=== PATIENT | male | born 1945 | race Caucasian/White ===

== ENCOUNTER 2018-06-18 12:21 | Emergency (ER) | payer OTHER ==
[2018-06-18] MEDS ORDERED: BUPIVACAINE 0.5% PF 10 ML VIAL ONE (12:55)
[2018-06-18] MEDS ORDERED: TETANUS & DIPHTHERIA TOX,ADULT 0.5 ML VIAL ONE (13:03)
--- NOTE | 2018-06-18 13:51 | EDPHYS ---
Physician Documentation [facility] Name: Marcellus Pereira Age: 72 yrs Sex: Male : 1945 Arrival Date: 06/18/2018 Time: 12:21 Bed 18 Private MD: ED Physician Travon Fisher HPI: 06/18 13:09 This 72 yrs old Male presents to ER via Ambulatory with complaints of jmm Laceration - Finger. 13:09 The patient or guardian reports injury, a laceration. Onset: The symptoms/episode jmm began/occurred acutely, 2 hour(s) ago. Modifying factors: The symptoms are alleviated by pressure to area, the symptoms are aggravated by movement. This is a 72 year old male with a history of hlp, that presents to the ED with complaints of a laceration to the left index finger. Patient states accidentally cutting his finger with a clean paring knife. Patient denies other injury. . Historical: - Allergies: 12:30 No Known Allergies; sv - PMHx: 12:30 High Cholesterol; Arthritis; sv - PSHx: 12:30 Hernia repair; sv - Immunization history:: Last tetanus immunization: < 10 years ago. - Social history:: Smoking status: Patient/guardian denies using tobacco. - Ebola Screening: : No symptoms or risks identified at this time. ROS: 13:09 Constitutional: Negative for fever, chills, and weight loss, Cardiovascular: Negative jmm for chest pain, palpitations, and edema, Respiratory: Negative for shortness of breath, cough, wheezing, and pleuritic chest pain. 13:09 MS/extremity: Positive for injury or acute deformity, laceration. 13:09 Skin: Positive for laceration(s). 13:09 All other systems are negative. Exam: 13:09 Constitutional: This is a well developed, well nourished patient who is awake, alert, jmm and in no acute distress. Head/Face: atraumatic. Eyes: EOMI, no conjunctival erythema appreciated ENT: Moist Mucus Membranes Neck: Trachea midline, Supple Chest/axilla: Normal chest wall appearance and motion. Cardiovascular: Regular rate and rhythm. No edema appreciated Respiratory: Normal respirations, no respiratory distress appreciated Abdomen/GI: Non distended, soft Back: Normal ROM 13:09 Musculoskeletal/extremity: FROM against resistance appreciated to the left DIP, < 2 sec dist cap refill, sensation intact, NVI. 13:09 Skin: 2 cm laceration noted to the palmar surface of the left index finger, no active bleeding is appreciated. 13:09 Neuro: Orientation: is normal, Mentation: is normal, Memory: is normal. 13:09 Psych: Behavior/mood is pleasant, cooperative. Vital Signs: 12:30 BP 129 / 67; Pulse 54; Resp 16; Temp 97.8(TE); Pulse Ox 98% ; Weight 86.64 kg; Height 6 sv ft. 2 in. (187.96 cm); Pain 0/10; 12:30 Body Mass Index 24.52 (86.64 kg, 187.96 cm) sv Laceration: 13:49 Wound Repair of 3cm ( 1.2in ) subcutaneous laceration to palmar aspect of distal jmm phalanx of left index finger and palmar aspect of middle phalanx of left index finger. Distal neuro/vascular/tendon intact. Anesthesia: Digital block administered with 3 mls of 0.5% marcaine. Wound prep: Moderate cleansing with betadine by me. Skin closed with 7 5-0 Prolene using simple sutures and sterile technique. Patient tolerated well. MDM: 12:34 Patient medically screened. [facility] 13:49 Data reviewed: vital signs, nurses notes. Counseling: I had a detailed discussion with kaleb the patient and/or guardian regarding: the historical points, exam findings, and any diagnostic results supporting the discharge/admit diagnosis, the need for outpatient follow up, to return to the emergency department if symptoms worsen or persist or if there are any questions or concerns that arise at home. ED course: Patient given wound infection return precautions. Patient understood and agrees with the plan of care. . Administered Medications: 12:53 Drug: Tetanus-Diphtheria Toxoid Adult 0.5 ml {Environmental Engineering Assistant: Mydish. Exp: em 04/01/2020. Lot #: [id number]. } Route: IM; Site: left deltoid; 14:08 Follow up: Response: No adverse reaction em 12:58 Drug: Marcaine (0.5 %) 5 ml {Note: administered by PA. Zenon} Volume: 10 ml; Route: em Infiltration; 14:08 Follow up: Response: No adverse reaction; Pain is decreased em Disposition: 15:12 Co-signature as Attending Physician, Travon Fsiher MD. rn Disposition: 06/18/18 13:50 Discharged to Home. Impression: Finger Laceration. - Condition is Stable. - Discharge Instructions: Laceration Care, Adult. - Medication Reconciliation Form, Thank You Letter, Antibiotic Education, Prescription Opioid Use form. - Follow up: Private Physician; When: 1 week; Reason: Recheck today's complaints, Continuance of care, Staple/Suture removal, Re-evaluation by your physician. Signatures: Shanti Rose, RN RN Zenon Underwood PA PA Emil Donis, PAPER TUBE CUTTER PAPER TUBE CUTTER Travon Trammell MD MD salesperson furniture: (The following items were deleted from the chart) 14:08 13:50 06/18/2018 13:50 Discharged to Home. Impression: Finger Laceration. Condition is em Stable. Forms are Medication Reconciliation Form, Thank You Letter, Antibiotic Education, Prescription Opioid Use. Follow up: Private Physician; When: 1 week; Reason: Recheck today's complaints, Continuance of care, Staple/Suture removal, Re-evaluation by your physician. kaleb
--- NOTE | 2018-06-18 13:51 | ER ---
Nurse's Notes [facility] Name: Marcellus Pereira Age: 72 yrs Sex: Male : 1945 Arrival Date: 06/18/2018 Time: 12:21 Bed 18 Private MD: Diagnosis: Finger Laceration Presentation: 06/18 12:28 Presenting complaint: Patient states: left 2nd digit laceration happened about 2 hrs sv ago with a pairing knife. Transition of care: patient was not received from another setting of care. Complicating Factors: There are no complicating factors for this patient. Onset of symptoms was June 18, 2018. Initial Sepsis Screen: Does the patient meet any 2 criteria? No. Patient's initial sepsis screen is negative. Does the patient have a suspected source of infection? No. Patient's initial sepsis screen is negative. Care prior to arrival: None. 12:28 Method Of Arrival: Ambulatory sv 12:28 Acuity: NANCY 3 sv Historical: - Allergies: 12:30 No Known Allergies; sv - PMHx: 12:30 High Cholesterol; Arthritis; sv - PSHx: 12:30 Hernia repair; sv - Immunization history:: Last tetanus immunization: < 10 years ago. - Social history:: Smoking status: Patient/guardian denies using tobacco. - Ebola Screening: : No symptoms or risks identified at this time. Screenin:00 Abuse screen: Denies threats or abuse. em 13:00 Nutritional screening: No deficits noted. Tuberculosis screening: No symptoms or risk em factors identified. Fall Risk None identified. Assessment: 13:00 General: Appears in no apparent distress. comfortable, Behavior is calm, cooperative. em Pain: Denies pain. Neuro: Level of Consciousness is awake, alert, obeys commands, Oriented to person, place, time, situation. Cardiovascular: Capillary refill < 3 seconds Patient's skin is warm and dry. Respiratory: Airway is patent Respiratory effort is even, unlabored, Respiratory pattern is regular, symmetrical. Derm: Skin is intact, is healthy with good turgor, Skin is pink, warm \T\ dry. Musculoskeletal: Capillary refill < 3 seconds, Range of motion: intact in all extremities. Injury Description: Laceration sustained to palmar aspect of distal phalanx of left index finger is clean, 2.6 to 7.5 cm long, not bleeding, was sustained 1-2 hours ago. is bleeding moderately a dressing was applied. 13:10 Reassessment: I agree with previous assessment. hb Vital Signs: 12:30 BP 129 / 67; Pulse 54; Resp 16; Temp 97.8(TE); Pulse Ox 98% ; Weight 86.64 kg; Height 6 sv ft. 2 in. (187.96 cm); Pain 0/10; 12:30 Body Mass Index 24.52 (86.64 kg, 187.96 cm) sv ED Course: 12:21 Patient arrived in ED. as 12:29 Triage completed. sv 12:30 Arm band placed on. sv 12:34 Emil Barrios LVN is Primary Nurse. em 12:34 Zenon Roberts PA is PHCP. [facility] 12:34 Travon Fisher MD is Attending Physician. [facility] 13:00 Patient has correct armband on for positive identification. Bed in low position. Call em light in reach. Adult w/ patient. 13:40 Assist provider with laceration repair on palmar aspect of distal phalanx of left index em finger that was between 2.6 to 7.5 cm using sutures. Set up tray. Performed by Zenon BEAR Dressed with 4X4s, Neosporin, Patient tolerated well. 14:06 Patient did not have IV access during this emergency room visit. em Administered Medications: 12:53 Drug: Tetanus-Diphtheria Toxoid Adult 0.5 ml {Clerk Telegraph Service: [employer]. Exp: em 04/01/2020. Lot #: [id number]. } Route: IM; Site: left deltoid; 14:08 Follow up: Response: No adverse reaction em 12:58 Drug: Marcaine (0.5 %) 5 ml {Note: administered by MARIANELA Yarbrough.} Volume: 10 ml; Route: em Infiltration; 14:08 Follow up: Response: No adverse reaction; Pain is decreased em Outcome: 13:50 Discharge ordered by . [facility] 14:06 Discharged to home ambulatory, with family. em 14:06 Condition: good 14:06 Discharge instructions given to patient, family, Instructed on discharge instructions, follow up and referral plans. medication usage, wound care, Demonstrated understanding of instructions, follow-up care. 14:08 Patient left the ED. em Signatures: Shanti Rose RN RN Zenon Underwood PA PA jmm Munoz, Edgar, JD EDWARDS DEVELOPER JD EDWARDS DEVELOPER Chelsey Almeida Heather, RN RN Corrections: (The following items were deleted from the chart) 14:07 14:06 No provider procedures requiring assistance completed. samson em
== END 2018-06-18 14:08 | disposition home or self-care (01) ==
LOC: ER 12:21
PROC: 0JQK0ZZ Repair Left Hand Subcutaneous Tissue and Fascia, Open Approach (ICD-10-PCS; principal; 2018-06-18)
DX: S61.211A Laceration without foreign body of left index finger without damage to nail, initial encounter (principal); W26.0XXA Contact with knife, initial encounter; E78.00 Pure hypercholesterolemia, unspecified
CPT/HCPCS: 90471; 90714; 99283

== ENCOUNTER 2018-06-19 07:16 | Emergency (ER) | payer OTHER ==
[2018-06-19] MEDS ORDERED: DERMABOND SKIN ADHESIVE TOP ONE (07:56)
--- NOTE | 2018-06-19 08:23 | ER ---
Nurse's Notes [facility] Name: Marcellus Pereira Age: 72 yrs Sex: Male : 1945 Arrival Date: 06/19/2018 Time: 07:18 Bed 15 Private MD: Diagnosis: Wound dehiscense of left index finger Presentation: 06/19 07:31 Presenting complaint: Patient states: "I came in and got sutures on my finger and I aa5 don't know if I grabbed something really hard or what but I have another cut on my finger now and I need more stitches". Transition of care: patient was not received from another setting of care. Onset of symptoms was June 2018. Risk Assessment: Do you want to hurt yourself or someone else? Patient reports no desire to harm self or others. Initial Sepsis Screen: Does the patient meet any 2 criteria? No. Patient's initial sepsis screen is negative. Does the patient have a suspected source of infection? No. Patient's initial sepsis screen is negative. Care prior to arrival: None. 07:31 Method Of Arrival: Ambulatory aa5 07:31 Acuity: NANCY 4 aa5 Historical: - Allergies: 07:32 No Known Allergies; aa5 - PMHx: 07:32 Arthritis; High Cholesterol; aa5 - PSHx: 07:32 Hernia repair; aa5 - Immunization history:: Last tetanus immunization: up to date Flu vaccine status is unknown. - Social history:: Smoking status: Patient/guardian denies using tobacco. - Ebola Screening: : No symptoms or risks identified at this time. Screenin:35 Abuse screen: Denies threats or abuse. Nutritional screening: No deficits noted. rb1 Tuberculosis screening: No symptoms or risk factors identified. Fall Risk None identified. Assessment: 07:35 General: Appears in no apparent distress. comfortable, Behavior is calm, cooperative. rb1 Neuro: Level of Consciousness is awake, alert, obeys commands, Oriented to person, place, time, situation. Cardiovascular: Capillary refill < 3 seconds is brisk in bilateral fingers. Respiratory: Airway is patent Respiratory effort is even, unlabored, Respiratory pattern is regular, symmetrical. GI: No signs and/or symptoms were reported involving the gastrointestinal system. : No signs and/or symptoms were reported regarding the genitourinary system. Derm: Skin is pink, warm \\T\\ dry. Wound noted palmar aspect of distal phalanx of left index finger Wound is small amount of bleeding noted. Musculoskeletal: Range of motion: intact in all extremities. 07:35 Pain: Complains of pain in palmar aspect of distal phalanx of left index finger Pain rb1 currently is 3 out of 10 on a pain scale. 08:30 Reassessment: Patient appears in no apparent distress at this time. Patient and/or rb1 family updated on plan of care and expected duration. Pain level reassessed. Patient is alert, oriented x 3, equal unlabored respirations, skin warm/dry/pink. No bleeding noted at this time. Vital Signs: 07:32 BP 129 / 68; Pulse 66; Resp 16 S; Temp 98.3(TE); Pulse Ox 98% on R/A; aa5 08:30 BP 127 / 68; Pulse 65; Resp 17; Temp 98.2(O); Pain 2/10; rb1 ED Course: 07:18 Patient arrived in ED. as 07:26 Brian Chaney MD is Attending Physician. ps1 07:31 Arm band placed on. aa5 07:32 Triage completed. aa5 07:35 Patient has correct armband on for positive identification. Bed in low position. Call rb1 light in reach. Side rails up X 1. Pulse ox on. NIBP on. 07:39 Bridgette Figueredo, RN is Primary Nurse. rb1 08:34 No provider procedures requiring assistance completed. Patient did not have IV access rb1 during this emergency room visit. Administered Medications: No medications were administered Outcome: 08:22 Discharge ordered by . ps1 08:34 Discharged to home ambulatory. rb1 08:34 Condition: stable 08:34 Discharge instructions given to patient, Instructed on discharge instructions, follow up and referral plans. Demonstrated understanding of instructions, follow-up care, Prescriptions given X none 08:35 Patient left the ED. rb1 Signatures: Chelsey Lynn Audri RN RN aa5 Bridgette Figueredo, RN RN rb1 Brian Chaney MD MD ps1
--- NOTE | 2018-06-19 08:23 | EDPHYS ---
Physician Documentation [facility] Name: Marcellus Pereira Age: 72 yrs Sex: Male : 1945 Arrival Date: 06/19/2018 Time: 07:18 Bed 15 Private MD: ED Physician Brian Chaney HPI: 06/19 08:13 This 72 yrs old Male presents to ER via Ambulatory with complaints of Finger ps1 Problem. 08:13 patient was seen and evaluated yesterday and was sutured for a paring knife injury. He ps1 has a flap at the site of injury that the suture popped and now wound dehiscence. He is experiencing venous bleeding that is controlled with pressure. Not on anti-coagulants but takes motrin. . Historical: - Allergies: 07:32 No Known Allergies; aa5 - PMHx: 07:32 Arthritis; High Cholesterol; aa5 - PSHx: 07:32 Hernia repair; aa5 - Immunization history:: Last tetanus immunization: up to date Flu vaccine status is unknown. - Social history:: Smoking status: Patient/guardian denies using tobacco. - Ebola Screening: : No symptoms or risks identified at this time. ROS: 08:13 Constitutional: Negative for fever, chills, and weight loss, Eyes: Negative for injury, ps1 pain, redness, and discharge, ENT: Negative for injury, pain, and discharge, Cardiovascular: Negative for chest pain, palpitations, and edema, Respiratory: Negative for shortness of breath, cough, wheezing, and pleuritic chest pain, Abdomen/GI: Negative for abdominal pain, nausea, vomiting, diarrhea, and constipation, Skin: Negative for injury, rash, and discoloration. 08:13 MS/extremity: Positive for laceration, v shaped previously sutured laceration to palmar aspect of left index finger. . Exam: 08:13 Constitutional: This is a well developed, well nourished patient who is awake, alert, ps1 and in no acute distress. Head/Face: Normocephalic, atraumatic. Eyes: Pupils equal round and reactive to light, extra-ocular motions intact. Lids and lashes normal. Conjunctiva and sclera are non-icteric and not injected. Chest/axilla: Normal chest wall appearance and motion. Nontender with no deformity. No lesions are appreciated. Cardiovascular: Regular rate and rhythm. No gallops, murmurs, or rubs. Normal PMI, no JVD. No pulse deficits. Respiratory: Lungs have equal breath sounds bilaterally, clear to auscultation and percussion. No rales, rhonchi or wheezes noted. No increased work of breathing, no retractions or nasal flaring. Abdomen/GI: Soft, non-tender, with normal bowel sounds. No distension or tympany. No guarding or rebound. No evidence of tenderness throughout. Skin: Warm, dry with normal turgor. Normal color with no rashes, no lesions, and no evidence of cellulitis. 08:13 Musculoskeletal/extremity: Extremities: grossly normal except: noted in the palmar aspect of distal phalanx of left index finger: good cap refill. 2 cm "V" shaped laceration with wound dehiscense and sutures not approximating the flap. Underlying venous bleeding. distal sutures intact. Flap appears white and with poor circulation. Good distal circulation to the tip of the finger that appears pink and with good cap refill. Has normal sensation. . Vital Signs: 07:32 BP 129 / 68; Pulse 66; Resp 16 S; Temp 98.3(TE); Pulse Ox 98% on R/A; aa5 08:30 BP 127 / 68; Pulse 65; Resp 17; Temp 98.2(O); Pain 2/10; rb1 Procedures: 08:23 Splinting: Splint applied to palmar aspect of distal phalanx of left index finger using ps1 finger splint, applied by nurse. Patient tolerated well. Laceration: 08:13 Wound Repair of 2cm ( 0.8in ) subcutaneous laceration to palmar aspect of distal ps1 phalanx of left index finger. Distal neuro/vascular/tendon intact. Wound prep: small amount of surgicel was placed under skin flap for 10 minutes. Hemostasis achieved. Dermabond then applied. . Skin closed with thin layer Adhesive skin closure using Dermabond. Dressed with non-adherent dressing. Patient tolerated well. MDM: 08:22 Patient medically screened. ps1 08:23 Data reviewed: vital signs, nurses notes, and as a result, I will discharge patient. ps1 Counseling: I had a detailed discussion with the patient and/or guardian regarding: the historical points, exam findings, and any diagnostic results supporting the discharge/admit diagnosis, the need for outpatient follow up, to return to the emergency department if symptoms worsen or persist or if there are any questions or concerns that arise at home. Response to treatment: the patient's symptoms have resolved after treatment. 06/19 07:50 Order name: Dermabond; Complete Time: 08:16 rb1 06/19 08:33 Order name: Splint - Finger; Complete Time: 08:33 rb1 Administered Medications: No medications were administered Disposition: 06/19/18 08:22 Discharged to Home. Impression: Wound dehiscense of left index finger. - Condition is Stable. - Discharge Instructions: Wound Dehiscence. - Medication Reconciliation Form, Thank You Letter, Antibiotic Education, Prescription Opioid Use form. - Follow up: Emergency Department; When: 10 - 14 days; Reason: Fever > 102 F, Staple/Suture removal. Follow up: Private Physician; When: 10 - 14 days; Reason: Staple/Suture removal. - Problem is an ongoing problem. - Symptoms have worsened. Signatures: Bernadette Tamayo RN RN aa5 Bridgette Figueredo RN RN rb1 Brian Chaney MD MD ps1 Corrections: (The following items were deleted from the chart) 08:35 08:22 06/19/2018 08:22 Discharged to Home. Impression: Wound dehiscense of left index rb1 finger. Condition is Stable. Forms are Medication Reconciliation Form, Thank You Letter, Antibiotic Education, Prescription Opioid Use. Follow up: Emergency Department; When: 10 - 14 days; Reason: Fever > 102 F, Staple/Suture removal. Follow up: Private Physician; When: 10 - 14 days; Reason: Staple/Suture removal. Problem is an ongoing problem. Symptoms have worsened. ps1
== END 2018-06-19 08:35 | disposition home or self-care (01) ==
LOC: ER 07:16
PROC: 0JQK0ZZ Repair Left Hand Subcutaneous Tissue and Fascia, Open Approach (ICD-10-PCS; principal; 2018-06-19)
DX: T81.30XA Disruption of wound, unspecified, initial encounter (principal); E78.00 Pure hypercholesterolemia, unspecified
CPT/HCPCS: 99283

== ENCOUNTER 2018-08-30 09:12 | Day surgery (SDC) | payer OTHER ==
--- NOTE | 2018-08-27 10:23 | RAD REPORT ---
EXAM DESCRIPTION: RAD - Chest Pa And Lat (2 Views) - 08/27/2018 10:18 am CLINICAL HISTORY: PRE-OP Chest pain. COMPARISON: No comparisons FINDINGS: The lungs are clear. The heart is mildly enlarged in size. No displaced fractures. IMPRESSION: Mild cardiomegaly.
[2018-08-27 10:37] LABS: Absolute Lymphocytes (CBC) 0.9 K/uL (0.7-4.9); Basophils % 0.3 % (0-1.3); Eosinophils % 0.9 % (0-4.4); Hematocrit 44.8 % (39.6-49.0); Lymphocytes % 12.2 % (15.3-44.8); MPV 7.3 fL (7.6-11.3); Monocytes % 5.4 % (3.3-12.3); RBC Red Blood Cell Count 4.87 M/uL (4.33-5.43)
[2018-08-27 10:45] LABS: Protime INR 0.93
[2018-08-27 10:57] LABS: Potassium 4.4 mmol/L (3.5-5.1)
[~2018-08-30 09:12] MED LIST: ATROPINE SULF 1 MG/10 ML SYR IV ONE; FENTANYL CITR 100 MCG/2 ML ONE; HEPA 1000U/500MLS 2,000 UNIT/1,000 ML BAG IV ONE; HEPARIN 5000 UNIT/ML 1 ML VIAL ONE; LIDOCAINE 1% MPF 30 ML VIAL ONE; MIDAZOLAM HCL 2 MG/2 ML INJ ONE; NA CHLORIDE 0.9% 50 ML ONE; NA CHLORIDE 0.9% 500 ML ONE; NICARDIPINE HCL 25 MG/10 ML IV ONE; NITROGLYCERIN 100 MCG/ML SYR (for cath lab use only) IV ONE; NITROGLYCERIN/D5W 25 MG/250 ML BTL IV ONE
[2018-08-30] MEDS ORDERED: PRASUGREL (EFFIENT) 10 MG TAB ONE (09:16)
[2018-08-30] MEDS ORDERED: ASPIRIN 81 MG CHEWABLE TABLET ONE (09:16)
[2018-08-30] MEDS ORDERED: TIZANIDINE 4 MG TABLET PO PRN (09:18)
--- NOTE | 2018-08-30 20:14 | OP ---
Surgeon: Enoch Villarreal MD Procedures: Left heart catheterization, coronary left ventricular angiography, percutaneous coronary intervention with a stent of the distal left anterior descending. The stenosis went from 99% to 0%. Procedure Findings: The patient's arteries other than where than 99% lesion is, are diffusely diseas ed. There is ectasia in the right coronary artery. There is 50% to 70% stenosis at numerous small s justina branches of the large vessels. No significant stenosis in large vessel was seen anywhere other t atkinson the distal LAD after a third diagonal. It was a 2.75 mm vessel, 99% stenosis, no dissection, SOLA I grade 2 to 3 distal flow. After the stent, there was no residual stenosis, 0% stenosis. Left vent ricular end-diastolic pressure was 11. All the pressures were normal. Left ventricular ejection fra ction 65%, normal. Procedure In Detail: The patient was brought to the cardiac cardiac cath lab radiology technologist in a fasting state, sedated wit h Versed and fentanyl. Prepared and draped in usual sterile fashion. Right radial approach was used . After a time-out, we anesthetized the skin over the right radial artery with 2 mL of 1% lidocaine. Artery was entered using a 21-gauge needle, cannulated with a 0.021 inch diameter guidewire and the n a 6-Mongolian Terumo radial sheath was used. As soon as the sheath was in, it was flushed and we gave the radial cocktail consisting of nicardipine, heparin, nitroglycerin. We guided the TIG catheter i nto the ascending aorta using fluoroscopy and a Hit the Markumo Glidewire with a short radius J-tip. We were able to angiogram right and left coronaries, left ventricle, all with TIG catheter. As soon as the d ecision was made to do a stent, we exchanged the TIG catheter for an XB LAD 3.5 with side holes 6-Td nch using an exchange length J-wire. We were able to engage the left main ostium nicely with this ca theter gave excellent support. We were able to cross the lesion using a Muna 0.014 inch diameter c oronary wire. After this, we placed a stent across the lesion, inflated to 12 atmospheres, withdrew it and withdrew the balloon apparatus leaving the stent in place. Of course, the angiographic result was excellent. We withdrew the wire, took pictures in orthogonal views, removed the catheter. At t he end of the procedure, the sheath was removed and the arteriotomy closed with a TR band. Before an y hardware was placed into the coronary arteries, Angiomax was given and the activated. Clotting sola e was demonstrated to be more than 400 seconds. The patient will be loaded with Effient 60 mg, aspir in. He will continue aspirin and Plavix as an outpatient. We will stop the Zocor and give him Lipit or [address] CATHY/NIMO Voice ID: [id number] Report ID: [id number]
[2018-08-30] MEDS ORDERED: ATORVASTATIN 80 MG TAB PO SCH (21:00)
[2018-08-30] MEDS ORDERED: TRAZODONE 150 MG TAB PO SCH (21:00)
[2018-08-30] MEDS ORDERED: TAMSULOSIN 0.4 MG SR CAP PO SCH (21:00)
[2018-08-31 04:27] LABS: Hematocrit 42.5 % (39.6-49.0); MPV 7.3 fL (7.6-11.3); RBC Red Blood Cell Count 4.64 M/uL (4.33-5.43)
[2018-08-31] MEDS ORDERED: METOPROLOL XL 25 MG TAB PO SCH (06:00)
[2018-08-31] MEDS ORDERED: CLOPIDOGREL 75 MG TABLET PO SCH (09:00)
[2018-08-31] MEDS ORDERED: predniSONE 10 MG TAB PO SCH (09:00)
[2018-08-31] MEDS ORDERED: ASPIRIN EC 81 MG TAB PO SCH (09:00)
== END 2018-08-31 09:44 | disposition home or self-care (01) ==
LOC: CCL 09:12 → 4TH 09:16 → CCL 08-31 09:44
PROVIDERS: ATTEND Internal Medicine
DX: I25.118 Atherosclerotic heart disease of native coronary artery with other forms of angina pectoris (principal); G47.33 Obstructive sleep apnea (adult) (pediatric); E78.5 Hyperlipidemia, unspecified; I10 Essential (primary) hypertension; K21.9 Gastro-esophageal reflux disease without esophagitis; M19.90 Unspecified osteoarthritis, unspecified site; Z79.52 Long term (current) use of systemic steroids; Z79.899 Other long term (current) drug therapy; Z85.46 Personal history of malignant neoplasm of prostate
CPT/HCPCS: 85025; 80048 ×2; 36415 ×2; 85610; 85347; 85730; 85027; 71046; 93458; C1893; C1725; C1877; C9600; J1644; J2250 ×2; J3010; J0583; J7512

== ENCOUNTER 2019-08-25 09:30 | Day surgery (SDC) | payer OTHER ==
--- NOTE | 2019-08-24 14:49 | RAD REPORT ---
EXAM DESCRIPTION: RAD - Chest Pa And Lat (2 Views) - 08/24/2019 2:31 pm CLINICAL HISTORY: PRE OP FOR FIELD ADJUSTER, patient pending cardiac catheterization COMPARISON: Two view chest August 2018 TECHNIQUE: Frontal and lateral views of the chest were obtained. FINDINGS: The lungs are clear. Interstitial pattern matches comparison. Heart size is normal and ce ntral vasculature is within normal limits. No pleural effusion or pneumothorax seen. No acute bony finding noted. No aortic abnormality. No significant change from comparison. IMPRESSION: No acute cardiopulmonary process.
[~2019-08-25 09:30] MED LIST changes: -ATROPINE SULF 1 MG/10 ML SYR IV ONE; -FENTANYL CITR 100 MCG/2 ML ONE; -HEPA 1000U/500MLS 2,000 UNIT/1,000 ML BAG IV ONE; -HEPARIN 5000 UNIT/ML 1 ML VIAL ONE; -LIDOCAINE 1% MPF 30 ML VIAL ONE; -MIDAZOLAM HCL 2 MG/2 ML INJ ONE; -NA CHLORIDE 0.9% 50 ML ONE; -NICARDIPINE HCL 25 MG/10 ML IV ONE; -NITROGLYCERIN 100 MCG/ML SYR (for cath lab use only) IV ONE; -NITROGLYCERIN/D5W 25 MG/250 ML BTL IV ONE
[2019-08-25] MEDS ORDERED: HEPA 1000U/500MLS 2,000 UNIT/1,000 ML BAG IV ONE (10:32)
[2019-08-25] MEDS ORDERED: HEPARIN 5000 UNIT/ML 1 ML VIAL ONE ×2 (10:33→10:35)
[2019-08-25] MEDS ORDERED: MIDAZOLAM HCL 2 MG/2 ML INJ ONE ×2 (10:33→12:12)
[2019-08-25] MEDS ORDERED: FENTANYL CITR 100 MCG/2 ML ONE (10:34)
[2019-08-25] MEDS ORDERED: NICARDIPINE HCL 25 MG/10 ML IV ONE (10:34)
[2019-08-25] MEDS ORDERED: ATROPINE SULF 1 MG/10 ML SYR IV ONE (10:34)
[2019-08-25] MEDS ORDERED: HEPARIN 10,000 UNIT/10 ML VIAL IV ONE (11:50)
[2019-08-25 14:03] VITALS: TEMP 97.2; O2SAT 98
[2019-08-25 15:28] VITALS: BP 150/60
--- NOTE | 2019-08-27 23:56 | OP ---
Date of Procedure: 08/25/2019 Surgeon: ENA PALMER Procedure Performed: Selective coronary angiogram. Indications: Unstable angina. Access: Right radial artery 6-Danish closed with TR band. Complications: None. Total Sedation Time: 25 minutes. Description Of Procedure: After the risks, benefits, and alternatives were explained to the patient, he agreed to procedure and signed informed consent. The patient was brought into the cardiac cathet erization laboratory, prepped and draped in usual sterile fashion. I then used fentanyl and Versed i n incremental doses to achieve adequate moderate sedation. We access right radial artery using pedia tric micropuncture kit and a 6-Danish slender sheath was inserted over the wire and then we took a 5- Danish [place] catheter in the aortic root over the J-wire, engaged the left main coronary artery, then the right coronary artery and obtained standard views and then removed all wires and catheters out f rom the body and we closed the right radial artery access with TR band. Findings: 1.Left main is normal. 2.Patent LAD stent with mid LAD 50%-60% stenosis, unchanged from last cath. 3.Ostial D2 and ostial D3 80%-90% stenosis, very small vessels, less than 2 mm in size. 4.Left circumflex ostial 20% and proximal OM1 is [place] COOPER with good collaterals from the left side, there is a 90% proximal OM2 stenosis also a small vessel. 5.RCA large dominant with diffuse 20%-30% disease. Impression: 1.Coronary artery disease as outlined above with unstable anginal symptoms. Recommendations: 1.IFR/FFR of LAD. If that is positive, then PCI to the LAD. If this is negative, then we will plan for balloon angioplasty of the D2, D3 and OM1. Plan to schedule the IFR/FFR study in [place] and di tomas with the patient and his and they agree with the plan. 2.Aggressive cardiac risk factor and medical management of coronary artery disease. SR/MODL Voice ID: [id number] Report ID: [id number]
== END 2019-08-25 14:20 | disposition home or self-care (01) ==
LOC: CCL 09:30
DX: I25.110 Atherosclerotic heart disease of native coronary artery with unstable angina pectoris (principal); I35.9 Nonrheumatic aortic valve disorder, unspecified; I10 Essential (primary) hypertension; E78.2 Mixed hyperlipidemia; K21.9 Gastro-esophageal reflux disease without esophagitis; Z95.5 Presence of coronary angioplasty implant and graft; Z79.02 Long term (current) use of antithrombotics/antiplatelets; Z79.82 Long term (current) use of aspirin; Z20.828 Contact with and (suspected) exposure to other viral communicable diseases
CPT/HCPCS: 71046; 93454; U0002; C1893; J1644 ×2; J2250 ×2; J3010; J7040

== ENCOUNTER 2020-09-24 11:00 | Day surgery (SDC) | payer OTHER ==
--- NOTE | 2020-09-21 12:40 | RAD REPORT ---
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 COMPARISON: Chest Pa And Lat (2 Views) dated 08/24/2019; Chest Pa And Lat (2 Views) dated 08/27/2018 FINDINGS: The lungs are clear. The heart is upper limit of normal in size. No displaced fractures. IMPRESSION: No acute or concerning finding suspected.
[2020-09-21 13:07] LABS: Potassium 4.5 mmol/L (3.5-5.1)
[2020-09-21 13:10] LABS: Basophils % 0.2 % (0-1.3); Hematocrit 41.7 % (39.6-49.0); Lymphocytes % 13.8 % (15.3-44.8); MPV 6.9 fL (7.6-11.3); RBC Red Blood Cell Count 4.42 M/uL (4.33-5.43)
[2020-09-21 13:12] LABS: Protime INR 1.03
[2020-09-24] MEDS ORDERED: HEPA 1000U/500MLS 2,000 UNIT/1,000 ML BAG IV ONE (11:58)
[2020-09-24] MEDS ORDERED: MIDAZOLAM HCL 2 MG/2 ML INJ ONE (12:09)
[2020-09-24] MEDS ORDERED: ATROPINE SULF 1 MG/10 ML SYR IV ONE (12:10)
[2020-09-24] MEDS ORDERED: HEPARIN 10,000 UNIT/10 ML VIAL IV ONE (12:10)
[2020-09-24] MEDS ORDERED: HEPARIN 5000 UNIT/ML 1 ML VIAL ONE (12:10)
[2020-09-24] MEDS ORDERED: FENTANYL CITR 100 MCG/2 ML ONE (12:10)
[2020-09-24] MEDS ORDERED: VERAPAMIL HCL 10 MG/4 ML VIAL IV ONE (12:10)
[2020-09-24] MEDS ORDERED: CLOPIDOGREL 75 MG TABLET ONE (13:01)
--- NOTE | 2020-09-24 14:25 | OP ---
Date of Procedure: 09/24/2020 Surgeon: ENA PALMER Procedures Performed: 1.Selective coronary angiogram. 2.PCI of severe mid LAD stenosis using a 3.0 x 20 mm Synergy drug-eluting stent post dilated using 3 .5 x 12 mm NC balloon proximal to mid portion of the stent. Access: Right radial artery 6-Finnish closed with TR band. Indication: Unstable angina. Anesthesia: Total sedation time was 45 minutes. Complications: None. Bleeding: Less than 10 mL. Description Of Procedure: After risks, benefits, and alternatives were explained, the patient agreed to the procedure and signed informed consent. The patient was brought into cardiac catheterization laboratory, prepped and draped in usual sterile fashion. Then, we accessed right radial artery using pediatric micropuncture kit, placed 6-Finnish Slender sheath, took a 5-Finnish Hellier 4.0 catheter into the aortic root, engaged the left main and right coronary artery, took standard views and then proce eded with intervention. Intervention Details: The patient was loaded with 300 mg of Plavix. Given systemic heparin to assur e ACT level above 250 throughout the procedure and then took a 6-Finnish EBU 3.5 guide into the aortic root, engaged the left main. We took a short Run-Through wire into the LAD crossing the stenosis an d took another Run-Through wire into the diagonal 1 branch for protection. Then, the lesion was prep ped using a 3.0 x 50 mm NC balloon. Lesion expanded very well and we took a 3.0 x 20 mm Synergy drug -eluting stent across the area of stenosis. Stent was deployed successfully and I took a 3.5 x 12 mm NC balloon, post dilated mid and the proximal portion of the stent. Final images showed no complica tions with ARAVIND-3 flow. Wires were removed. Catheter was removed and the sheath was removed and chris néstor TR band with good hemostasis. Findings: 1.Left main; large, normal. 2.LAD; proximal diffuse 10% to 20% stenosis. Then mid has 80% long lesion calcified, status post garcia ccessful PCI as above. Then, there are multiple areas of 10% to 20% stenosis in the LAD throughout, but distally around the apex, there was a focal area of 60% stenosis with ARAVIND-3 flow. The diagonal 1 branch has a proximal stent that is patent. 3.Left circumflex; moderate-size vessel, normal. The OM1 is totally occluded with collaterals from the RCA and good flow all the way. OM2 is patent with a proximal stent that is patent. No iSR. 4.RCA; large, dominant, aneurysmal at multiple areas with alternating with some 10% to 20% stenosis. However, patent PDA and PLB, and PDA gives collaterals to the OM1 branch. Conclusion: 1.Severe mid LAD stenosis, status post successful PCI as above. 2.PROFESSIONAL FIGHTER of OM1 with good collaterals from RCA. Plan: 1.Aspirin, Plavix, and statin. 2.Perform peripheral angiogram in 2-3 weeks due to the contrast load. It was not done today. /NIMO Voice ID: [id number] Report ID: [id number]
[2020-09-24 14:53] VITALS: TEMP 97
[2020-09-24 16:31] VITALS: BP 135/61; O2SAT 99
--- NOTE | 2020-09-26 13:04 | EKG ---
Test Date: 2020-09-21 Test Time: 11:22:13 Business Services Officer: CHRIST MEASUREMENT RESULTS: Intervals: Rate: 40 NM: 150 QRSD: 142 QT: 502 QTc: 409 [place]: P: 12 NM: 150 QRS: -15 T: 27 INTERPRETIVE STATEMENTS: Marked sinus bradycardia with premature atrial complexes Right bundle branch block Inferior infarct, age undetermined Abnormal ECG Compared to ECG 09/21/2020 11:21:05 Atrial premature complex(es) now present Myocardial infarct finding still present Electronically Signed On 09-26-20 12:59:42 CDT by Robert Tilley
== END 2020-09-24 17:00 | disposition home or self-care (01) ==
LOC: CCL 11:00
PROVIDERS: ATTEND Internal Medicine
DX: I25.110 Atherosclerotic heart disease of native coronary artery with unstable angina pectoris (principal); I25.82 Chronic total occlusion of coronary artery; I70.213 Atherosclerosis of native arteries of extremities with intermittent claudication, bilateral legs; I10 Essential (primary) hypertension; E78.5 Hyperlipidemia, unspecified; Z95.5 Presence of coronary angioplasty implant and graft; Z20.822 Contact with and (suspected) exposure to COVID-19; Z82.49 Family history of ischemic heart disease and other diseases of the circulatory system
CPT/HCPCS: 93005 ×2; 85025; 80048; 36415; 85610; 85347; 85730; 71046; 93454; U0003; C1893; C1725; C9600; J1644 ×2; J2250; J3010

== ENCOUNTER 2021-11-10 14:14 | Observation (INO) | payer OTHER ==
[~2021-11-10 14:14] MED LIST changes: -NA CHLORIDE 0.9% 500 ML ONE; +REGADENOSON 0.4 MG/5 ML SYR IV ONE
--- OUTSIDE RECORDS SUMMARY | 2021-11-10 14:18 | XMS REPORT | Continuity of Care Document ---
:1945 Author Organization [facility] t Address [address] [place] [address] Care Team Providers Name Role Phone Syeda Andujar Attending Clinician Unavailable Brook Mae Attending Clinician Unavailable Only, Adc Test Attending Clinician Unavailable Cassius Raza MD Attending Clinician CASSIUS RAZA Attending Clinician Unavailable William Waters RN Attending Clinician Unavailable UNKNOWN Attending Clinician Unavailable Physician, No Primary or Family Admitting Clinician Unavaila ble Payers Payer Name Policy Type Policy Number Effective Date Expiration Date S ource Problems This patient has no known problems. Allergies, Adverse Reactions, Alerts Allergy Allergy Status Severity Reaction(s) Onset Inactive Treating Comm ents Source Name Type Date Date Clinician No Known DA Active U 2019- [facility] 02[facility]18 [place] [facility] 00:[facility]: [facility] No Known DA Active U 2019-02 [facility] 02-18 [place] [facility] 00:[facility]: Gracia [facility] No Known DA Active U 2020-0 [facility] 09-08 [place] 00:[place]: [address] No Known DA Active U 2020-0 [facility] 09[facility]08 [place] 00:[place]: [address] No Known DA Active U 2005-02 [facility] [place] [facility] No Known DA Active U 2005-02 [facility] Drug [place] [facility] No Known DA Active U 2006-1 [facility] Food [facility]- [place] [facility] 00:[facility]: [facility] No Known DA Active U 2005- [facility] Other [facility]- [place] [facility]: [facility] No Known DA Active U 2005- [facility] [place] [facility]: [facility] No Known DA Active U 2005- [facility]- [place] [facility] 00:[facility]: [facility] NO KNOWN Drug Active [facility] ALLERGIE Class ity [facility] Social History Social Habit Start Date Stop Date Quantity Comments Source Exposure to Not sure [facility] SARS-CoV-2 (event) [facility] Sex Assigned At [birth year] [facility] 00:00:00 00:00:00 [facility] Smoking Status Start Date Stop Date Source Unknown if ever smoked [facility] Medications This patient has no known medications. Procedures This patient has no known procedures. Encounters Start End Encounter Admission Attending Care Care Encounter Source Date/Time Date/Time Type Type Clinicians Facility Department ID 2019-12-30 Inpatient MYESHA Andujar [facility] DAYS [id number] [facility] 09:30:00 [facility] 2019-09-14 Inpatient MYESHA Mae [facility] CAT [id number] [facility] 12:18:[address] [facility] 2020-07-18 2020-07-18 Laboratory Only, Adc Test [facility] [id number] [facility] 10:25:20 10:40:20 Only Cassius Raza [id number] [facility] [id number] [facility] [id number] [place] [address] [address] 2020-07-18 2020-07-18 Outpatient R ARMANDO [facility] [id number] [facility] 10:15:00 10:15:00 CASSIUS jennings [facility] 2020-07-18 2020-07-18 Letter BLANCHE Waters [id number] [facility] 00:00:00 00:00:00 (Out) [id number] as [id number] [facility] [address] 2019-12-20 2019-12-20 Outpatient JASON AndujarCL LABO [id number] [facility] 13:17:00 13:17:00 Mufaddal 58 [facility] 2019-11-25 2019-11-25 Outpatient JASON AndujarTO RADI [id number] [facility] 09:30:00 09:30:00 Mufaddal [facility] [place] [facility] 2019-09-09 2019-09-09 Outpatient UNKNOWN [facility] LABO [id number] [facility] 15:31:00 15:31:00 13 [facility] Results Test Description Test Time Test Comments Results Result Comments Source Novel Coronavirus 2018 Inhouse 2019-12-21 02:09:00 Test Item Value Reference Range Interpretation Comme nts Novel Coronavirus 2018 Negative Negative Posit harrison results are indicative of the Inhouse (test code = presenc e imFOLP-TfV-0 RNA, clinical COVNONPUI) correlation wit h patient historyand other diagnosti c information is necessary to de terminepatient infection status. Positiv e results do not rule outbacterial in fection or co-infection with other viru ses. Negative results do not preclude SA RS-CoV-2 infection andshould not b e used as the sole basis for patient man agementdecisions. Negative result s must be combined with otherclinical o bservations, patient history, and ep idemiologicalinformation. Detection of SA RS-CoV-2 RNA may be affected bysamp le collection methods, storage conditi ons, and/or stageof infection. Josette l RNA mutations, vaccinations, a ntiviraltherapeutics, antibiotics, ch emotherapeutic orimmunosuppres rika drugs have not been evaluated for e ffectson detection. Results are for the identification of SARS-CoV-2 RNA usingthe Webflow M2000 System under th e FDA Emergency UseAuthorizatio n. The testing is performed by sera rsonneltrained in the procedures for the Webflow M2000 moleculardiagno stic SARS-CoV-2 assay in vitro. Novel Coronavirus 2018 [id number] 02:09:00 Test Item Value Reference Range Interpretation Comments Novel Coronavirus Negative Negative Positive r esults are 2019 Inhouse (test indicativ e of the presence code = COVNONPUI) ofSARS-CoV -2 RNA, clinical correlation wit h patient historyand othe r diagnostic info rmation is necessary to determinepatien t infection status. Positiv e results do not rule out bacterial infection or co -infection with other viru ses. Negative result s do not preclude SARS-C oV-2 infection andsh ould not be used as the shai e basis for patient managementdecis ions. Negative result s must be combined with otherclinical observations, p atient history, and epidemiological information . Detection of SARS-CoV-2 RNA may be affe cted bysample collec tion methods, storag e conditions, and /or stageof infection. Josette l RNA mutations, vacc inations, antiviraltherap eutics, antibiotics, chemotherapeuti c orimmunosuppres rika drugs have not been e valuated for effectson d etection. Results are for the identification of SARS-CoV-2 RNA usingthe Webflow M2000 Sy stem under the FDA Emergen cy UseAuthorizatio n. The testing is perf ormed by personneltraine d in the procedures for the Webflow M2000 molecular diagnostic SARS-CoV-2 assa y in vitro. - MRI UP JNT W/O CONT [id number] 15:59:00 Patient Name: BLANCHE REID Unit No: [id number] EXAMS: CPT CODE: [id number] MRI UP JNT W/[place] [id number] MR of the right shoulder without contrast TECHNIQUE: Paracoronal, parasagittal and axial multisequence images obtained. COMPARISON: None available. FINDINGS: Acromioclavicular joint: Moderate degenerative changes. Rotator cuff: Full- thickness tear of the near entire supraspinatus tendon measures 1.8 cm transversely and is located approximately 1 cm from the tendon insertion. Tendon retraction measures up to 1.5 cm. There is partial sparing of the posterior supraspinatus fibers. Supraspinatus and infraspinatus tendinosis is demonstrated. Mild intramuscular edema of the supraspinatus is present.Long head biceps tendon: Marked tendinosis is demonstrated without definite tear. Labrum: No definite labral tear is visualized. Cartilage/ bone: No full thickness chondral defect. No acute fracture. No suspicious osseous lesion. Other: Small glenohumeral joint effusion. IMPRESSION: 1. Full-thickness tear of the near entire supraspinatus tendon, located 1 cm proximal to the tendon insertion. 2. Marked biceps tendinosis. 3. Moderate AC joint degenerative change. at 1559 Reported and signed by: Julian Patel M.D. CC: Syeda Andujar MD Technologist: TERRIE ZAVALA RT(R) Transcribed D/ (9288) tRICKIE [facility] NAME: BLANCHE REID [id number] [facility] PHYS: JACI Ware Syeda Andujar Natacha : 1945 AGE: 74 SEX: M [place] [address] LOC: Y.MRI PHONE #: [phone] DATE: 11/25/2019 STATUS: DEP CLI FAX #: [phone] RAD #: D/C DT PAGE 1 Signed Report Patient Name: BLANCHE REID Unit No: [id number] EXAMS: CPT CODE: [id number] MRI UP JNT W/[place] [id number] <Continued> Orig Print D/T: S: 11/28/2019 (1602) [facility] NAME: BLANCHE REID [id number] [facility] PHYS: JCAI Ware Syeda Andujar : 1945 AGE: 74 SEX: M [place] [address] LOC: Y.MRI PHONE #: [phone] EXAM DATE: 11/25/2019 STATUS: DEP CLI FAX #: [phone] RAD #: D/C DT PAGE 2 Signed ReportCOAGULATION TIME [id number] 10:28:00 Test Item Value Reference Range Interpretation Comments COAGULATION TIME ACTIVATED (test 241 SECONDS 74-137 H code = ACT) COAGULATION TIME [id number] 09:52:00 Test Item Value Reference Range Interpretation Comments COAGULATION TIME ACTIVATED (test 351 SECONDS 74-137 H code = ACT) Novel Coronavirus [id number] 07:35:00 Test Item Value Reference Range Interpretation Comments Novel Coronavirus Negative Negative Positive r esults are 2019 Inhouse (test indicativ e of the presence code = [id number]) ofSARS-CoV -2 RNA, clinical correlation wit h patient historyand othe r diagnostic info rmation is necessary to determinepatien t infection status. Positiv e results do not rule out bacterial infection or co -infection with other viru ses. Negative result s do not preclude SARS-C oV-2 infection andsh ould not be used as the shai e basis for patient managementdecis ions. Negative result s must be combined with otherclinical observations, p atient history, and epidemiological information . Detection of SARS-CoV-2 RNA may be affe cted bysample collec tion methods, storag e conditions, and /or stageof infection. Josette l RNA mutations, vacc inations, antiviraltherap eutics, antibiotics, chemotherapeuti c orimmunosuppres rika drugs have not been e valuated for effectson d etection. Results are for the identification of SARS-CoV-2 RNA usingthe Palacio M2000 Sy stem under the FDA Emergen cy UseAuthorizatio n. The testing is perf ormed by mariajose pepe in the procedures for the Palacio M2000 molecular diagnostic SARS-CoV-2 assa y in vitro.Positive results are indicative of t he presence [id number] RN A, clinical correlation wit h patient historyand othe r diagnostic info rmation is necessary to determinepatien t infection status. Positiv e results do not rule out bacterial infection or co -infection with other viru ses. Negative result s do not preclude SARS-C oV-2 infection andsh ould not be used as the shai e basis for patient managementdecis ions. Negative result s must be combined with otherclinical observations, p atient history, and epidemiological information . Detection of SARS-CoV-2 RNA may be affe cted bysample collec tion methods, storag e conditions, and /or stageof infection. Josette l RNA mutations, vacc inations, antiviraltherap eutics, antibiotics, chemotherapeuti c orimmunosuppres rika drugs have not been e valuated for effectson d etection. Results are for the identification of SARS-CoV-2 RNA usingthe Palacio M2000 Sy stem under the FDA Emergen cy UseAuthorizatio n. The testing is perf ormed by personneltraine d in the procedures for the Palacio M2000 molecular diagnostic SARS-CoV-2 assa y in vitro. Novel Coronavirus 07:34:00 Test Item Value Reference Range Interpretation Comments Novel Coronavirus Negative Negative Positive r esults are 2019 Inhouse (test indicativ e of the presence code = [id number]) ofSARS-CoV -2 RNA, clinical correlation wit h patient historyand othe r diagnostic info rmation is necessary to determinepatien t infection status. Positiv e results do not rule out bacterial infection or co -infection with other viru ses. Negative result s do not preclude SARS-C oV-2 infection andsh ould not be used as the shai e basis for patient managementdecis ions. Negative result s must be combined with otherclinical observations, p atient history, and epidemiological information . Detection of SARS-CoV-2 RNA may be affe cted bysample collec tion methods, storag e conditions, and /or stageof infection. Josette l RNA mutations, vacc inations, antiviraltherap eutics, antibiotics, chemotherapeuti c orimmunosuppres rika drugs have not been e valuated for effectson d etection. Results are for the identification of SARS-CoV-2 RNA usingthe Palacio M2000 Sy stem under the FDA Emergen cy UseAuthorizatio n. The testing is perf ormed by personneltraine d in the procedures for the Palacio M2000 molecular diagnostic SARS-CoV-2 assa y in vitro. COMPREHENSIVE METABOLIC [id number] 14:12:00 Test Item Value Reference Range Interpretation Comments SODIUM (test code = 143 MMOL/L 136-143 N NA) POTASSIUM (test 4.6 MMOL/L 3.5-5.1 N code = K) CHLORIDE (test code 103 MMOL/L 98-107 N = CL) CARBON DIOXIDE 28 mmol/L 24-31 N (test code = CO2) GLUCOSE (test code 114 mg/dL 70-104 H = GLU) BLOOD UREA NITROGEN 14.2 MG/DL 7.0-21.0 N (test code = BUN) GLOMERULAR >=60 max >60 The estimated FILTRATION RATE estimate glomerular (test code = GFR) filtration rate is computed usingpatient ra ce, age (>18), sex, and serum creatinin e. If anyof the ne eded data elements a re missing the Laboratory niki ot compute an estimation of t he glomerular filtration rate . CREATININE (test 0.8 mg/dL 0.8-1.5 N code = CREAT) TOTAL PROTEIN (test 5.7 g/dL 6.3-8.3 L code = PROT) ALBUMIN (test code 4.3 G/DL 3.5-5.0 N = ALB) CALCIUM (test code 9.2 mg/dL 8.8-10.2 N = CA) BILIRUBIN TOTAL 0.6 mg/dL 0.2-1.0 N (test code = BILT) SGOT/AST (test code 20 IU/L 10-34 N = AST) SGPT/ALT (test code 25 U/L 10-44 N = ALT) ALKALINE 65 U/L 45-120 N PHOSPHATASE (test code = ALKP) CBC W/AUTO [id number] 14:06:00 Test Item Value Reference Range Interpretation Comments WHITE BLOOD CELL (test code = 6.2 x10 3/uL 4.8-10.8 N WBC) RED BLOOD CELL (test code = 4.54 x10 6/uL 4.70-6.10 L RBC) HEMOGLOBIN (test code = HGB) 14.6 g/dL 14.5-20 N HEMATOCRIT (test code = HCT) 43.1 % 42.0-52.0 N MEAN CELL VOLUME (test code = 94.9 fL 80.0-94.0 H MCV) MEAN CELL HGB (test code = MCH) 32.2 pg 27-31 H MEAN CELL HGB CONCENTRATION 33.9 G/DL 33-36.5 N (test code = MCHC) RED CELL DISTRIBUTION WIDTH 13.0 % 12.9-16.9 N (test code = RDW) PLATELET COUNT (test code = 145 150-440 L PLT) MEAN PLATELET VOLUME (test code 8.8 fL 8.9-12.4 L = MPV) NEUTROPHIL % (test code = NT%) 76.3 % 42.2-75.2 H LYMPHOCYTE % (test code = LY%) 14.6 % 20.5-51.1 L MONOCYTE % (test code = MO%) 7.2 % 1.7-9.3 N EOSINOPHIL % (test code = EO%) 0.8 % 0.0-7.0 N BASOPHIL % (test code = BA%) 0.3 % 0-2.5 N NEUTROPHIL # (test code = NT#) 4.69 x10 3/uL 1.80-7.70 N LYMPHOCYTE # (test code = LY#) 0.90 x10 3/uL 1.00-4.80 L MONOCYTE # (test code = MO#) 0.44 x10 3/uL 0.00-0.80 N EOSINOPHIL # (test code = EO#) 0.05 x10 3/uL 0.00-0.45 N BASOPHIL # (test code = BA#) 0.02 x10 3/uL 0.0-0.20 N
[2021-11-10 14:49] LABS: Absolute Lymphocytes (CBC) 0.9 K/uL (0.7-4.9); Hematocrit 43.1 % (39.6-49.0); Lymphocytes % 14.2 % (15.3-44.8); MCV 95.1 fL (80-100); MPV 6.6 fL (7.6-11.3); RBC Red Blood Cell Count 4.54 M/uL (4.33-5.43)
[2021-11-10] MEDS ORDERED: ASPIRIN 81 MG CHEWABLE TABLET ONE (14:49)
[2021-11-10] MEDS ORDERED: MORPHINE 2 MG/ML SYR ONE (14:51)
[2021-11-10] MEDS ORDERED: ONDANSETRON 4 MG/2 ML VIAL ONE (14:51)
[2021-11-10 14:54] LABS: Protime INR 1.09
[2021-11-10 15:10] LABS: ALT/SGPT 30 U/L (12-78); AST/SGOT 16 U/L (15-37); Albumin 3.5 g/dL (3.4-5.0); Alkaline Phosphatase 77 U/L (45-117); BUN Blood Urea Nitrogen 21 mg/dL (7-18); Bicarbonate 30 mmol/L (21-32); Bilirubin Total 0.4 mg/dL (0.2-1.0); Glomerular Filtration Rate 64 ml/min (=/>90); Glucose Level 175 mg/dL (74-106); Lipase 73 U/L (73-393); Magnesium 2.1 mg/dL (1.8-2.4); NT PRO-BNP 104 pg/mL (<450); Potassium 3.8 mmol/L (3.5-5.1); Protein, Total 6.1 g/dL (6.4-8.2); Sodium Level 141 mmol/L (136-145); Troponin High Sensitivity 24.6 pg/mL (<58.9)
[2021-11-10 15:19] LABS: Bilirubin Direct < 0.1 mg/dL (0-0.2)
--- NOTE | 2021-11-10 15:24 | RAD REPORT ---
EXAM DESCRIPTION: RAD - Chest Single View - 11/10/2021 3:17 pm CLINICAL HISTORY: CHEST PAIN COMPARISON: Two view chest 09/21/2020 TECHNIQUE: AP portable chest image was obtained 11/10/2021 3:17 pm . FINDINGS: Lungs are clear. Lung parenchymal pattern matches comparison. Heart and vasculature are no rmal. No measurable pleural effusion and no pneumothorax. No acute bony abnormality seen. No acute ao rtic findings suspected. IMPRESSION: No acute cardiopulmonary process.
--- NOTE | 2021-11-10 16:36 | ER ---
Nurse's Notes [facility] Name: Marcellus Pereira Age: 76 yrs Sex: Male : 1945 Arrival Date: 11/10/2021 Time: 14:16 Bed 15 Private MD: Weston Jackson E Diagnosis: Unstable angina Presentation: 11/10 14:22 Chief complaint: Sharp intermittent chest pain and SOB that started while in [facility] today. Coronavirus screen: At this time, the client does not indicate any symptoms associated with coronavirus-19. Ebola Screen: No symptoms or risks identified at this time. Risk Assessment: Do you want to hurt yourself or someone else? Patient reports no desire to harm self or others. Onset of symptoms was November 10, 2021. 14:22 Method Of Arrival: Wheelchair hb 14:22 Acuity: NANCY 3 hb 20:46 Initial Sepsis Screen: Does the patient meet any 2 criteria? No. Patient's initial ke1 sepsis screen is negative. Does the patient have a suspected source of infection? No. Patient's initial sepsis screen is negative. Historical: - Allergies: 14:24 No Known Allergies; hb - PMHx: 14:24 Arthritis; High Cholesterol; hb 14:24 Hypertensive disorder; hb - PSHx: 14:24 Cardiac Stents; hb - Immunization history:: Adult Immunizations up to date. - Social history:: Smoking status: Patient denies any tobacco usage or history of. Screenin:34 Abuse screen: Denies threats or abuse. Denies injuries from another. Nutritional mb8 screening: No deficits noted. Tuberculosis screening: No symptoms or risk factors identified. Fall Risk None identified. Assessment: 14:34 Pain: Complains of pain in chest Pain does not radiate. Pain began 8am. Cardiovascular: mb8 Reports chest pain, shortness of breath, Denies nausea, vomiting. 14:35 General: Appears in no apparent distress. Behavior is calm, cooperative, appropriate mb8 for age. 14:35 Neuro: No deficits noted. Cardiovascular: No deficits noted. Respiratory: No deficits ko1 noted. GI: No deficits noted. : No deficits noted. EENT: No deficits noted. Derm: No deficits noted. Musculoskeletal: No deficits noted. Vital Signs: 14:22 BP 134 / 84; Pulse 65; Resp 16; Temp 98.1; Pulse Ox 100% on R/A; Weight 95.25 kg; hb Height 6 ft. (182.88 cm); Pain 5/10; 14:46 BP 136 / 76; Pulse 70; Resp 18; Pulse Ox 99% ; tw2 15:00 BP 134 / 77; Pulse 55; Pulse Ox 98% ; ko1 15:15 BP 145 / 75; Pulse 57; ko1 15:30 BP 131 / 73; Pulse 58; ko1 16:00 BP 123 / 75; Pulse 53; ko1 16:30 BP 125 / 69; Pulse 51; ko1 17:00 BP 149 / 71; Pulse 55; ko1 18:12 BP 135 / 74; Pulse 49; Pulse Ox 98% ; ko1 20:45 BP 134 / 75; Pulse 58; Resp 17; Temp 98.2; Pulse Ox 95% on R/A; Pain 0/10; ke1 14:22 Body Mass Index 28.48 (95.25 kg, 182.88 cm) hb ED Course: 14:16 Patient arrived in ED. mr 14:16 Weston Jackson MD is Private Physician. mr 14:19 Cory Nevarez PA is PHCP. cp 14:19 Travon Fisher MD is Attending Physician. cp 14:24 Triage completed. hb 14:24 Arm band placed on. hb 14:34 Patient has correct armband on for positive identification. Placed in gown. Bed in low mb8 position. Call light in reach. Side rails up X2. Client placed on continuous cardiac and pulse oximetry monitoring. NIBP monitoring applied. monitor technician on. 14:35 No provider procedures requiring assistance completed. Inserted saline lock: 18 gauge mb8 in right antecubital area, using aseptic technique. Blood collected. Oxygen administration via nasal cannula \T\ 2L/min. 14:41 Maryjane Ma, RN is Primary Nurse. tw2 14:48 Basic Metabolic Panel Sent. tw2 14:48 CBC with Diff Sent. tw2 14:48 LFT's Sent. tw2 14:48 Magnesium Sent. tw2 14:48 NT PRO-BNP Sent. tw2 14:48 PT-INR Sent. tw2 14:48 Troponin HS Sent. tw2 14:48 Ptt, Activated Sent. tw2 14:48 Lipase Sent. tw2 15:18 XRAY Chest (1 view) In Process Unspecified. EDMS 16:34 Joshua Hale MD is Hospitalizing Provider. cp 17:19 SARS RAPID Sent. ko1 20:46 Patient admitted, IV remains in place. ke1 Administered Medications: 14:47 Drug: morphine 2 mg Route: IVP; Infused Over: 4 mins; Site: right antecubital; tw2 14:47 Drug: Zofran (Ondansetron) 4 mg Route: IVP; Site: right antecubital; tw2 14:47 Drug: Aspirin 162 mg Route: PO; tw2 Medication: 14:34 VIS not applicable for this client. mb8 Outcome: 16:36 Decision to Hospitalize by Provider. cp 20:45 Admitted to Med/surg accompanied by tech. ke1 20:45 Condition: good 20:45 Instructed on the need for admit. 20:46 Patient left the ED. ke1 Signatures: Dispatcher [employer] EDVT Tracey JacksonCory, MARIANELA PA cp Luisa Gray RN JACKLYN Maryjane Ma RN RN 2 Marisa Jules RN RN ke1 Beto Zamudio RN RN mb8 Valentina Frye RN RN ko1
--- NOTE | 2021-11-10 16:36 | EDPHYS ---
Physician Documentation [facility] Name: Marcellus Pereira Age: 76 yrs Sex: Male : 1945 Arrival Date: 11/10/2021 Time: 14:16 Bed 15 Private MD: Weston Jackson E ED Physician Travon Fisher HPI: 11/10 14:45 This 76 yrs old Male presents to ER via Wheelchair with complaints of Chest Pain. cp 14:45 The patient or guardian reports chest pain that is located primarily in the anterior cp chest wall, mid chest. Onset: today. The pain does not radiate. Associated signs and symptoms: Pertinent negatives: cough, diaphoresis, dizziness, lower extremity pain, lower extremity swelling, shortness of breath, syncope. The chest pain is described as a pressure. Duration: The patient or guardian reports multiple episodes, that wax and wane. Severity of pain: in the emergency department the pain has resolved and did so just prior to arrival. Historical: - Allergies: 14:24 No Known Allergies; hb - PMHx: 14:24 Arthritis; High Cholesterol; hb 14:24 Hypertensive disorder; hb - PSHx: 14:24 Cardiac Stents; hb - Immunization history:: Adult Immunizations up to date. - Social history:: Smoking status: Patient denies any tobacco usage or history of. ROS: 14:50 Eyes: Negative for injury, pain, redness, and discharge. cp 14:50 Constitutional: Negative for body aches, chills, fever, poor PO intake. 14:50 ENT: Negative for drainage from ear(s), ear pain, sore throat, difficulty swallowing, difficulty handling secretions. 14:50 Cardiovascular: Positive for chest pain. 14:50 Respiratory: Negative for cough, shortness of breath, wheezing. 14:50 Abdomen/GI: Negative for abdominal pain, nausea, vomiting, and diarrhea. 14:50 Neuro: Negative for altered mental status, headache, weakness. 14:50 All other systems are negative. Exam: 14:55 Head/Face: Normocephalic, atraumatic. cp 14:55 Constitutional: The patient appears in no acute distress, alert, awake, comfortable, non-diaphoretic, non-toxic, well developed, well nourished. 14:55 Eyes: Periorbital structures: appear normal, Conjunctiva: normal, no exudate, no injection, Sclera: no appreciated abnormality, Lids and lashes: appear normal, bilaterally. 14:55 ENT: External ear(s): are unremarkable, Nose: is normal, Mouth: Lips: moist, Oral mucosa: pink and intact, moist, Posterior pharynx: Airway: no evidence of obstruction, patent. 14:55 Chest/axilla: Inspection: normal, Palpation: is normal, no crepitus, no tenderness. 14:55 Cardiovascular: Rate: bradycardic, Rhythm: regular, Edema: is not appreciated, JVD: is not appreciated. 14:55 Neck: ROM/movement: is normal, is supple, without pain, no range of motions cp limitations, no nuchal rigidity. 14:55 Respiratory: the patient does not display signs of respiratory distress, Respirations: cp normal, no use of accessory muscles, no retractions, labored breathing, is not present, Breath sounds: are clear throughout, no decreased breath sounds, no stridor, no wheezing. 16:55 Abdomen/GI: Inspection: abdomen appears normal, Bowel sounds: active, all quadrants, cp Palpation: abdomen is soft and non-tender, in all quadrants. 16:55 Back: pain, is absent, ROM is normal. 16:55 Neuro: Orientation: to person, place \T\ time. Mentation: is normal, Motor: moves all fours, strength is normal, Sensation: is normal. Vital Signs: 14:22 BP 134 / 84; Pulse 65; Resp 16; Temp 98.1; Pulse Ox 100% on R/A; Weight 95.25 kg; hb Height 6 ft. (182.88 cm); Pain 5/10; 14:46 BP 136 / 76; Pulse 70; Resp 18; Pulse Ox 99% ; tw2 15:00 BP 134 / 77; Pulse 55; Pulse Ox 98% ; ko1 15:15 BP 145 / 75; Pulse 57; ko1 15:30 BP 131 / 73; Pulse 58; ko1 16:00 BP 123 / 75; Pulse 53; ko1 16:30 BP 125 / 69; Pulse 51; ko1 17:00 BP 149 / 71; Pulse 55; ko1 18:12 BP 135 / 74; Pulse 49; Pulse Ox 98% ; ko1 20:45 BP 134 / 75; Pulse 58; Resp 17; Temp 98.2; Pulse Ox 95% on R/A; Pain 0/10; ke1 14:22 Body Mass Index 28.48 (95.25 kg, 182.88 cm) hb MDM: 14:35 Patient medically screened. 11/10 14:36 Order name: Basic Metabolic Panel; Complete Time: 16:09 11/10 16:09 Interpretation: Normal except: GLUC 175; BUN 21; GFR 64. 11/10 14:36 Order name: CBC with Diff; Complete Time: 16:09 11/10 16:10 Interpretation: PLT 147; MPV 6.6; SISSY% 76.3; LYM% 14.2. 11/10 14:36 Order name: LFT's; Complete Time: 16:09 11/10 14:36 Order name: Magnesium; Complete Time: 16:09 11/10 14:36 Order name: NT PRO-BNP; Complete Time: 16:09 11/10 14:36 Order name: PT-INR; Complete Time: 16:09 11/10 14:36 Order name: Troponin HS; Complete Time: 16:09 11/10 14:36 Order name: Ptt, Activated; Complete Time: 16:09 11/10 14:36 Order name: Lipase; Complete Time: 16:09 11/10 16:56 Order name: Basic Metabolic Panel [facility] 11/10 16:56 Order name: Basic Metabolic Panel [facility] 11/10 16:56 Order name: CBC with Automated Diff [facility] 11/10 16:56 Order name: CBC with Automated Diff [facility] 11/10 16:56 Order name: Lipid Profile [facility] 11/10 14:36 Order name: XRAY Chest (1 view); Complete Time: 16:09 11/10 14:36 Order name: EKG; Complete Time: 14:37 11/10 14:36 Order name: Cardiac monitoring; Complete Time: 14:36 11/10 14:36 Order name: EKG - Nurse/Tech; Complete Time: 14:36 11/10 16:56 Order name: CONS Physician Consult [facility] 11/10 16:56 Order name: Heart Healthy [facility] 11/10 16:56 Order name: Echo with Doppler [facility] 11/10 16:56 Order name: Lipid Profile [facility] 11/10 16:59 Order name: Troponin High Sensitivity [facility] 11/10 16:59 Order name: Troponin High Sensitivity [facility] 11/10 17:07 Order name: Diet Regular; Complete Time: 17:08 11/10 17:11 Order name: SARS RAPID cp 11/10 17:42 Order name: SARS-COV-2 Antigen Rapid [facility] 11/10 14:36 Order name: IV Saline Lock; Complete Time: 14:36 11/10 14:36 Order name: Labs collected and sent; Complete Time: 14:36 11/10 14:36 Order name: O2 Per Protocol; Complete Time: 14:36 11/10 14:36 Order name: O2 Sat Monitoring; Complete Time: 14:36 cp Administered Medications: 14:47 Drug: morphine 2 mg Route: IVP; Infused Over: 4 mins; Site: right antecubital; tw2 14:47 Drug: Zofran (Ondansetron) 4 mg Route: IVP; Site: right antecubital; tw2 14:47 Drug: Aspirin 162 mg Route: PO; tw2 Disposition Summary: 11/10/21 16:36 Hospitalization Ordered Hospitalization Status: Observation cp Provider: Joshua Hale cp Location: Telemetry/MedSurg (observation) cp Condition: Stable cp Problem: new cp Symptoms: have improved cp Bed/Room Type: Standard Room Assignment: 418(11/10/21 19:06) Diagnosis - Unstable angina cp Forms: - Medication Reconciliation Form cp - SBAR form cp Addendum: 11/13/2021 07:29 Co-signature as Attending Physician, Travon Fisher MD. r n Signatures: Dispatcher [employer] [facility] Makayla Ahumada RN RN mw Nieto, Roman, MD MD rn Page, Corey, PA PA cp Luisa Gray RN RN hb Wise, Tara, RN RN tw2 Corrections: (The following items were deleted from the chart) 11/10 19:06 16:36 cp 11/11 20:44 11/10 16:45 This 76 yrs old Male presents to ER via Wheelchair with complaints of Chest cp Pain. cp 11/11 20:44 11/10 16:45 The patient or guardian reports chest pain that is located primarily in the cp anterior chest wall, mid chest cp 11/11 20:44 11/10 16:45 Onset: today, cp cp 11/11 20:44 11/10 16:45 The pain does not radiate. cp cp 11/11 20:44 11/10 16:45 Associated signs and symptoms: Pertinent negatives: cough, diaphoresis, cp dizziness, lower extremity pain, lower extremity swelling, shortness of breath, syncope, cp 11/11 20:44 11/10 16:45 The chest pain is described as a pressure, cp cp 11/11 20:44 11/10 16:45 Duration: The patient or guardian reports multiple episodes, that wax and cp wane, cp 11/11 20:44 11/10 16:45 Severity of pain: in the emergency department the pain has resolved and did cp so just prior to arrival, cp 11/11 20:45 11/10 16:50 Constitutional: Negative for body aches, chills, fever, poor PO intake, cp cp 11/11 20:45 11/10 16:50 Cardiovascular: Positive for chest pain, cp cp 11/11 20:45 11/10 16:50 Respiratory: Negative for cough, shortness of breath, wheezing, cp cp 11/11 20:45 11/10 16:50 Eyes: Negative for injury, pain, redness, and discharge, cp cp 11/11 20:45 11/10 16:50 ENT: Negative for drainage from ear(s), ear pain, sore throat, difficulty cp swallowing, difficulty handling secretions, cp 11/11 20:45 11/10 16:50 Abdomen/GI: Negative for abdominal pain, nausea, vomiting, and diarrhea, cp cp 11/11 20:45 11/10 16:50 Neuro: Negative for altered mental status, headache, weakness, cp cp 11/11 20:45 11/10 16:50 All other systems are negative, cp cp 11/11 20:46 11/10 16:55 Constitutional: The patient appears in no acute distress, alert, awake, cp comfortable, non-diaphoretic, non-toxic, well developed, well nourished, cp 11/11 20:46 11/10 16:55 Head/Face: Normocephalic, atraumatic. cp cp 11/11 20:46 11/10 16:55 Eyes: Periorbital structures: appear normal, Conjunctiva: normal, no cp exudate, no injection, Sclera: no appreciated abnormality, Lids and lashes: appear normal, bilaterally, cp 11/11 20:11/10 16:55 ENT: External ear(s): are unremarkable, Nose: is normal, Mouth: Lips: cp moist, Oral mucosa: pink and intact, moist, Posterior pharynx: Airway: no evidence of obstruction, patent, cp 11/11 20:11/10 16:55 Neck: ROM/movement: is normal, is supple, without pain, no range of motions cp limitations, no nuchal rigidity, cp 11/11 20:11/10 16:55 Chest/axilla: Inspection: normal, Palpation: is normal, no crepitus, no cp tenderness, cp 11/11 20:11/10 16:55 Cardiovascular: Rate: bradycardic, Rhythm: regular, Edema: is not cp appreciated, JVD: is not appreciated, cp 11/11 20:11/10 16:55 Respiratory: the patient does not display signs of respiratory distress, cp Respirations: normal, no use of accessory muscles, no retractions, labored breathing, is not present, Breath sounds: are clear throughout, no decreased breath sounds, no stridor, no wheezing, cp
[2021-11-10] MEDS ORDERED: MORPHINE 4 MG/ML SYR IV PRN (16:52)
[2021-11-10] MEDS ORDERED: ACETAMINOPHEN 500 MG TAB PO PRN (16:52)
[2021-11-10 17:41] LABS: SARS-CoV-2 Antigen Rapid Res Negative (Negative)
[2021-11-10] MEDS: METOPROLOL TAR 50 MG TAB PO SCH ×2 (21:51→22:02)
[2021-11-10] MEDS: ENOXAPARIN 100 MG/ML SYR SQ SCH (21:52)
[2021-11-10] MEDS ORDERED: HYDRALAZINE HCL 20 MG/ML VIAL IV PRN (22:03)
[2021-11-11 00:44] VITALS: BMI 28.4
[2021-11-11 06:25] LABS: Absolute Lymphocytes (CBC) 1.3 K/uL (0.7-4.9); Hematocrit 43.3 % (39.6-49.0); Lymphocytes % 16.3 % (15.3-44.8); MPV 6.9 fL (7.6-11.3); RBC Red Blood Cell Count 4.56 M/uL (4.33-5.43)
[2021-11-11 06:35] LABS: Troponin High Sensitivity 29.4 pg/mL (<58.9)
--- NOTE | 2021-11-11 07:03 | P.HP ---
Certification for Inpatient Patient admitted to: Observation With expected LOS: <2 Midnights Patient will require the following post-hospital care: None Practitioner: I am a practitioner with admitting privileges, knowledge of patient current condition, hospital course, and medical plan of care. Services: Services provided to patient in accordance with Admission requirements found in Title 42 Section 412.3 of the Code of Federal Regulations Patient History Date of Service: 11/10/21 Reason for admission: chest pain rule out acute coronary syndrome History of Present Illness: Patient is a 76yo gentleman who came to the hospital with chest discomfort. It started earlier in the day and was not letting up so he came to the hospital for further evaluation. Patient had LAD stent placed last year by Cardiology. Patient's chest pain has resolved. He does have some T-wave inversion and is anterior leads. Will review with old EKG. Otherwise, patient with no new complaints. He denies any shortness of breath. He denies any diaphoresis. No nausea or vomiting. Patient has had follow-up with Cardiology and was scheduled for a stress test later this week. Try to get this done in the morning along with an echocardiogram. Cardiology will be by to see patient as well. Allergies No Known Allergies Allergy (Verified 08/24/19 14:04) Home Medications: Fluticasone Propionate [Flonase Allergy Relief] 2 spray IH DAILY 08/30/18 Trazodone [Desyrel*] 2 tab PO BEDTIME 08/30/18 Aspirin Chewable [Aspirin Chewable*] 81 mg PO DAILY #30 tab.chew 08/31/18 Atorvastatin Calcium [Lipitor] 80 mg PO BEDTIME #30 tab 08/31/18 Clopidogrel Bisulfate [Plavix*] 75 mg PO DAILY #30 tablet 08/31/18 Metoprolol Succinate [Toprol Xl*] 25 mg PO [id number] tab 08/31/18 Tamsulosin [Flomax*] 0.4 mg PO BEDTIME cap 08/31/18 Cetirizine HCl [Zyrtec] 10 mg PO DAILY 08/24/19 Ezetimibe [Zetia] 10 mg PO DAILY 08/24/19 Fexofenadine HCl 180 mg PO DAILY 08/24/19 Pantoprazole Sodium [Protonix] 40 mg PO DAILY 08/24/19 Furosemide [Lasix] 2 tab PO DAILY 09/25/22 Montelukast [Singulair*] 1 tab PO DAILY 11/10/21 Vit B Complex B-100 1 tab PO DAILY 11/10/21 - Past Medical/Surgical History Has patient received pneumonia vaccine in the past: Yes Diabetic: No -: prostate cancer -: hypertensive -: hyperlipidemia -: GERD -: Cardiac stents-year [id number] - Family History Father Family History: Reviewed- Non-Contributory - Social History Smoking Status: Never smoker Alcohol use: Yes CD- Drugs: No Caffeine use: No Place of Residence: Home Review of Systems 10-point ROS is otherwise unremarkable Physical Examination - Vital Signs Temperature: 97.2 F Blood Pressure: 146/68 Pulse: 55 Respirations: 19 Pulse Ox (%): 97 - Physical Exam General: Alert, In no apparent distress, Oriented x3 HEENT: Atraumatic, PERRLA, Mucous membr. moist/pink, EOMI, Sclerae nonicteric Neck: Supple, 2+ carotid pulse no bruit, No LAD, Without JVD or thyroid abnormality Respiratory: Clear to auscultation bilaterally, Normal air movement Cardiovascular: Regular rate/rhythm, Normal S1 S2 Gastrointestinal: Normal bowel sounds, Soft and benign, Non-distended, No tenderness Musculoskeletal: No clubbing, No swelling, No tenderness Integumentary: No rashes Neurological: Normal gait, Normal speech, Normal strength at 5/5 x4 extr, Normal tone, Sensation intact, Cranial nerves 3-12 intact, Normal affect Lymphatics: No axilla or inguinal lymphadenopathy - Studies Laboratory Data (last 24 hrs) 11/10/21 14:41: PT 12.0, INR 1.09, APTT 27.7 11/10/21 14:41: WBC 6.30, Hgb 14.4, Hct 43.1, Plt Count 147 L 11/10/21 14:41: Sodium 141, Potassium 3.8, BUN 21 H, Creatinine 1.18, Glucose 175 H, Magnesium 2.1, Total Bilirubin 0.4, AST 16, ALT 30, Alkaline Phosphatase 77, Lipase 73 Assessment & Plan - Problems (Diagnosis) (1) Chest pain, rule out acute myocardial infarction Current Visit: Yes Status: Acute (2) HTN (hypertension) Current Visit: Yes Status: Acute (3) Hyperlipidemia Current Visit: Yes Status: Acute (4) CAD in [place] artery Current Visit: No Status: Acute (5) Prostate cancer Current Visit: Yes Status: Acute - Plan 1. Serial troponins and EKG 2. Appreciate Cardiology consultation 3. Echocardiogram and stress test in AM 4. Anti-platelet therapy, anti coagulation, beta-ish, statin, and O2 as needed 5. IV morphine for pain 6. Nitro p.r.n. Discharge Plan: Home Plan to discharge in: 24 Hours - Advance Directives Does patient have a Living Will: Yes Does patient have a Durable POA for Healthcare: Yes - Code Status/Comfort Care Code Status Assessed: Yes Code Status: Full Code Critical Care: No Time Spent Managing PTS Care (In Minutes): 45
[2021-11-11] MEDS: ENOXAPARIN 100 MG/ML SYR SQ SCH ×2 (07:10→18:02)
[2021-11-11] MEDS: METOPROLOL TAR 50 MG TAB PO SCH ×3 (07:59→20:14)
[2021-11-11] MEDS: ASPIRIN EC 81 MG TAB PO SCH (08:35)
[2021-11-11] MEDS: CLOPIDOGREL 75 MG TABLET PO SCH (08:35)
--- NOTE | 2021-11-11 14:09 | EKG ---
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
--- NOTE | 2021-11-11 14:18 | RAD REPORT ---
EXAM DESCRIPTION: NM - Rest Stress Cardiac Imaging - 11/11/2021 1:58 pm CLINICAL HISTORY: Chest pain COMPARISON: Portable chest 11/10/2021 TECHNIQUE: The patient was administered 10.3 mCi of Tc 99m Sestamibi prior to resting SPECT imaging of the heart. The patient was then administered 29.1 mCi of Tc 99m Sestamibi following exercise or ph armacologic stress. Multiplanar SPECT images were reviewed. FINDINGS: The end diastolic volume is 111 ml, the end systolic volume is 39 ml, and the ejection fra ction is 65 %. A small focal fixed perfusion abnormality is present in the inferolateral wall mid in apex portion. I n the mid to base portion of the left ventricle there is a stress perfusion abnormality not present o n rest imaging. No other area of stress ischemia or scarring identified. IMPRESSION: Stress ischemic defect is seen in the lateral wall left ventricle mid depth base portion . Small fixed defect inferolateral left ventricle favored to be scarring. Diaphragm attenuation artifac t is possible. End-diastolic volume is only slightly elevated at 111 mL. Ejection fraction is normal at 65%.
--- NOTE | 2021-11-11 18:31 | P.PN ---
Subjective Date of Service: 11/11/21 Chief Complaint: chest pain rule out acute coronary syndrome Subjective: No new changes No acute events overnight. He denies any recurrent episodes of chest pain since admission. However, he notes that his chest pain episodes are similar to his prior episodes of coronary events. Review of Systems 10-point ROS is otherwise unremarkable Cardiovascular: Chest Pain Physical Examination - Vital Signs Temperature: 97.1 F Blood Pressure: 150/71 Pulse: 60 Respirations: 18 Pulse Ox (%): 99 - Physical Exam General: Alert, In no apparent distress, Oriented x3 HEENT: Atraumatic, PERRLA, Mucous membr. moist/pink, EOMI, Sclerae nonicteric Neck: Supple, JVD not distended Respiratory: Clear to auscultation bilaterally, Normal air movement Cardiovascular: No edema, Regular rate/rhythm, Normal S1 S2, No gallops, No rubs, No murmurs Gastrointestinal: Normal bowel sounds, Soft and benign, Non-distended, No tenderness, No rebound, No guarding Musculoskeletal: No clubbing Integumentary: No rashes Neurological: Normal speech, Cranial nerves 3-12 intact, Normal affect Assessment And Plan - Plan # Chest Pain with history of Coronary Artery Disease s/p PCI x 3 (2018, 2019, 2020) # Hypertension # Hyperlipidemia - Evaluation thus far: - EKG: without STEMI criteria, trend - Serial troponin: 24.6 -> 28.1 -> 29.4 - Ordered transthoracic echocardiogram - Chest x-ray = "No acute cardiopulmonary process." - Management plan: - Consult Cardiology and Dr. Tilley notified - recommendations appreciated - Plan for nuclear stress test this morning - Disposition pending this exam - Continue aspirin, clopidogrel, metoprolol - Started atorvastatin - Start JUANI-inhibitor/ARB if tolerated # History of Prostate Cancer # Gastroesophageal Reflux Disease - Continue home meds Charly Carr M.D.
--- NOTE | 2021-11-11 19:00 | CON ---
Date of Consultation: 11/11/[address] Carr 11/10/2021. I saw the patient on 11/11/2021. Reason For Consultation: Palpitation and chest pain. 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 Has history of hypertension, dyslipidemia, gastroesophageal reflux disease, and luiza ign prostatic hypertrophy. Came in with some edema to the feet with some palpitation, some sharp and stabbing chest pain that would last a minute at a time, but it was really going on for about 2 to 3 days. No nausea, vomiting, diaphoresis, PND, orthopnea, or syncope. Denied any fever or chills or c ough. Past Medical History: As stated above. Allergies: NONE. Review of Systems: Negative. Social History: Negative. Family History: Negative. Medications: At home include aspirin, Lipitor, Plavix, Zetia, Lasix, metoprolol, Protonix, and Floma x. Physical Examination: General: The patient is in no acute distress. Vital Signs: Stable, afebrile. HEENT: Negative. Neck: Supple with no bruit. Chest: Clear. Cardiac: Revealed a regular rhythm and rate. No murmurs, gallops, or rubs. Abdomen: Benign. Extremities: Revealed no clubbing, cyanosis, or edema. Diagnostic Data: All within normal limits. Impression And Plan: Atypical chest pain with some edema and palpitation. Echocardiogram is pending . Lexiscan is pending. History of coronary artery disease, status post LAD stent in September 2020. Melissa stauffer will see what the study show before making further decisions. His other problems include hypertens ion, dyslipidemia, benign prostatic hypertrophy, gastroesophageal reflux disease, all of those are st able. His edema may be secondary to his diet or diastolic congestive heart failure. We will see mainor medina the echo shows. We will continue to follow. DUSTIN/NIMO Voice ID: [id number] Report ID: [id number]
[2021-11-11] MEDS ORDERED: ATORVASTATIN 40 MG TAB PO SCH (21:00)
--- NOTE | 2021-11-12 00:15 | CON ---
Date of Consultation: 11/11/2021 Reason For Consultation: Chest pain. History Of Present Illness: A 76-year-old male with history of coronary artery disease, status post LAD stent, post TN last year, presented with chest pain, retrosternal, pressure-like that radiates to left upper extremity, completely resolved. Denies having nausea, vomiting, diaphoresis. Had a stre ss test today that was abnormal for ischemia and currently he is chest pain-free. Past Medical History: Coronary artery disease, dyslipidemia, hypertension, enlarged prostate. Medications: Refer reconciliation sheet for detailed list. Allergies: NO KNOWN DRUG ALLERGIES. Family History: No premature coronary artery disease or cancer. Social History: Does not smoke or drink. Does not use any drugs. Review of Systems: All systems reviewed are negative except as mentioned in HPI. Physical Examination: Vital Signs: Reviewed. Head and Neck: Pupils are equal, reactive to light. Intact eye movements. No JVD. No cervical lym phadenopathy. Neck is supple. Thyroid is not enlarged. Lungs: Clear to auscultation bilaterally. No rhonchi, rales, or crackles. No accessory muscle use. Heart: Regular rate and rhythm. No extra sounds. Abdomen: Soft, nontender. Bowel sounds positive. No organomegaly. No masses or hernia. No rigidi ty or rebound. Extremities: No edema, clubbing, or cyanosis. Intact pulses. Skin: No rashes. Neurologic: Alert, awake, and oriented x3. No acute focal deficits appreciated. Investigations: Troponins x3 are negative. BUN is 23, creatinine 1.04, and hemoglobin is 14.7. The stress test showed a lateral wall ischemia. Assessment And Recommendation: 1.Chest pain with abnormal stress test. Keep n.p.o. past midnight. Plan for coronary angiogram susanna orrow. Continue baby aspirin. His Lovenox to be held after midnight now and continue Plavix. Keep n.p.o. past midnight for procedure tomorrow. 2.Hypertension. Blood pressure is controlled. Continue beta ish and resume his home medication s, adjust further if needed. SR/MODL Voice ID: [id number] Report ID: [id number]
[2021-11-12] MEDS: ENOXAPARIN 100 MG/ML SYR SQ SCH (06:00)
[2021-11-12] MEDS: METOPROLOL TAR 50 MG TAB PO SCH (06:22)
[2021-11-12] MEDS: ASPIRIN EC 81 MG TAB PO SCH (06:22)
[2021-11-12] MEDS: CLOPIDOGREL 75 MG TABLET PO SCH (06:22)
--- NOTE | 2021-11-12 07:30 | ECHO ---
HEIGHT: 6 ft 0 in WEIGHT: 209 lb 14.4 oz DATE OF STUDY: 11/11/[address]: Joshua Hale MD 2-DIMENSIONAL: YES M.MODE: YES DOPPLER: YES COLOR FLOW: YES TDS: YES PORTABLE: YES DEFINITY: NO BUBBLE STUDY: NO DIAGNOSIS: CHEST PAIN CARDIAC HISTORY: CATHERIZATION:YES SURGERY: PROSTHETIC VALVE: PACEMAKER: MEASUREMENTS (cm) DIASTOLIC (NORMALS) SYSTOLIC (NORMALS) IVSd 1.1 (0.6-1.2) LA Diam 3.9 (1.9-4.0) LVEF 60-65% LVIDd 4.6 (3.5-5.7) LVIDs 2.7 (2.0-3.5) %FS 41% LVPWd 1.1 (0.6-1.2) Ao Diam 3.4 (2.0-3.7) 2 DIMENSIONAL ASSESSMENT: RIGHT ATRIUM: NORMAL LEFT ATRIUM: NORMAL RIGHT VENTRICLE: NORMAL LEFT VENTRICLE: NORMAL TRICUSPID VALVE: MITRAL VALVE: MILD CALCIFICATION PULMONIC VALVE: NORMAL AORTIC VALVE: PERICARDIAL EFFUSION: NONE AORTIC ROOT: NORMAL LEFT VENTRICULAR WALL MOTION: NORMAL DOPPLER/COLOR FLOW: SEE BELOW COMMENTS: NORMAL LEFT VENTRICULAR EJECTION FRACTION 60-65%. NORMAL WALL MOTION. MILD TRICUSPID AND AORTIC REGURGITATION. TECHNOLOGIST: Luisito HENDERSON
--- NOTE | 2021-11-12 07:35 | TREADPHA ---
DX: CHEST PAIN Date of Study: 11/11/2021 Ht: 6' 0 " Wt: 209 lb 14.4 oz Consulting Physician: SPENCER MEDICATIONS: LOVENOX, LOPRESSOR, ASPIRIN, PLAVIX HISTORY: 76 YEAR OLD MALE WITH COMPLAINTS OF CHEST PAIN. HISTORY OF PRIOR CARDIAC STENTS, HIGH CHOLESTEROL, HYPERTENSION AND PROSTATE CANCER. DENIES SMOKING OR RECREATIONAL DRUGS. DRINKS ONE GLASS OF WINE DAILY. PHYSICIAL EXAMINATION: RESTING B.P.: 132/72 RESTING H.R.: 56 RESTING EKG: NORMAL SINUS RHYTHM, RIGHT BUNDLE BRANCH BLOCK. PROTOCOL: LEXISCAN EXERCISE TIME: 3:30 B.P. AT PEAK STRESS: 138/71 IMPRESSION: LEXISCAN INJECTED, CARDIOLITE INJECTED PER PROTOCOL. SEE NUCLEAR MEDICINE REPORT. NO CHEST PAIN. NO SUPRAVENTRICULAR OR VENTRICULAR TACHYCARDIA. OCCASIONAL PREMATURE VENTRICULAR COMPLEXES NOTED THROUGHOUT STUDY. NO EKG CHANGES OF ISCHEMIA WITH LEXISCAN.
[2021-11-12] MEDS ORDERED: NA CHLORIDE 0.9% 500 ML ONE (08:04)
[2021-11-12] MEDS ORDERED: NA CHLORIDE 0.9% 0 ML IV ONE (08:06)
[2021-11-12] MEDS ORDERED: FENTANYL CITR 100 MCG/2 ML ONE (08:06)
[2021-11-12] MEDS ORDERED: MIDAZOLAM HCL 2 MG/2 ML INJ ONE (08:06)
[2021-11-12] MEDS ORDERED: ATROPINE SULF 1 MG/10 ML SYR IV ONE (08:06)
[2021-11-12 09:42] VITALS: BP 138/74; O2SAT 100
--- NOTE | 2021-11-12 10:53 | P.DS ---
Admission Date: 11/10/21 Discharge Date: 11/12/21 Disposition: ROUTINE DISCHARGE Discharge Condition: GOOD Reason for Admission: chest pain rule out acute coronary syndrome Consultations: 1. Cardiology Procedures: 11/12/2021 - Left Heart Catheterization Hospital Course: DIAGNOSES: # Chest Pain with history of Coronary Artery Disease s/p PCI x 3 (2018, 2019, 2020) # Hypertension # Hyperlipidemia # History of Prostate Cancer # Gastroesophageal Reflux Disease HOSPITAL COURSE: Mr. Marcellus Pereira is a pleasant 76 year old male with a past medical history significant for coronary artery disease s/p PCI x 3 (2018, 2019, 2020) who was admitted to the [facility] on 11/10/2021 for chest pain. He was admitted to the Medicine service. His EKG was without STEMI criteria. His troponin trend was 24.6 -> 28.1 -> 29.4. His chest x-ray revealed, "no acute cardiopulmonary process." Transthoracic echocardiogram revealed, "normal left ventricular ejection fraction 60-65%. Normal wall motion. Mild tricuspid and aortic regurgitation." Cardiology was consulted and he was evaluated by Dr. Tilley. A nuclear stress test was completed, which revealed, "small fixed defect inferolateral left ventricle favored to be scarring. Diaphragm attenuation artifact is possible. End-diastolic volume is only slightly elevated at 111 mL. Ejection fraction is normal at 65%." A left heart catheterization was performed today, and per Dr. Tilley, all of his prior stents were patent and there was no evidence of coronary obstruction. Dr. Tilley has cleared him for discharge home today with outpatient follow-up. He recommended increasing his metoprolol dose from 25 mg to 50 mg at discharge. On 11/12/2021, he was seen on rounds and deemed medically stable for discharge. He was discharged with instructions to schedule follow-up appointments with his PCP (Dr. Eubanks) in 3-5 days and with Cardiology (Dr. Tilley) in 5-7 days. He was provided a prescription for metoprolol. He and his were given the opportunity to ask questions and reported no further questions. Furthermore, all questions were answered to the best of my ability. A copy of this discharge summary will be sent to the above providers to facilitate continuity of care. Today, I personally spent 20 minutes on his case, of which greater than 50% of the time was spent in patient education, counseling, and coordination of care as described above. - Physical Exam General: Alert, In no apparent distress, Oriented x3 HEENT: Atraumatic, PERRLA, Mucous membr. moist/pink, EOMI, Sclerae nonicteric Neck: Supple, JVD not distended Respiratory: Clear to auscultation bilaterally, Normal air movement Cardiovascular: No edema, Regular rate/rhythm, Normal S1 S2, No gallops, No ru bs, No murmurs Gastrointestinal: Normal bowel sounds, Soft and benign, Non-distended, No tenderness, No rebound, No guarding Musculoskeletal: No clubbing Integumentary: No rashes Neurological: Normal speech, Cranial nerves 3-12 intact, Normal affect Vital Signs/Physical Exam: Temp Pulse Resp BP Pulse Ox 97.2 F 57 16 138/74 98 11/12/21 04:00 11/12/21 09:22 11/12/21 09:22 11/12/21 09:22 11/12/21 04:00 Laboratory Data at Discharge: WBC 8.10 K/uL (4.3-10.9) 11/11/21 05:52 Hgb 14.7 g/dL (13.6-17.9) 11/11/21 05:52 Hct 43.3 % (39.6-49.0) 11/11/21 05:52 Plt Count 163 K/uL (152-406) 11/11/21 05:52 PT 12.0 SECONDS (9.5-12.5) 11/10/21 14:41 INR 1.09 11/10/21 14:41 APTT 27.7 SECONDS (24.3-36.9) 11/10/21 14:41 Sodium 142 mmol/L (136-145) 11/11/21 05:52 Potassium 4.0 mmol/L (3.5-5.1) 11/11/21 05:52 BUN 23 mg/dL (7-18) H 11/11/21 05:52 Creatinine 1.04 mg/dL (0.55-1.3) 11/11/21 05:52 Glucose 120 mg/dL (74-106) H 11/11/21 05:52 Magnesium 2.1 mg/dL (1.8-2.4) 11/10/21 14:41 Total Bilirubin 0.4 mg/dL (0.2-1.0) 11/10/21 14:41 AST 16 U/L (15-37) 11/10/21 14:41 ALT 30 U/L (12-78) 11/10/21 14:41 Alkaline Phosphatase 77 U/L (45-117) 11/10/21 14:41 Triglycerides 220 mg/dL (<150) H 11/11/21 05:52 Cholesterol 154 mg/dL (<200) 11/11/21 05:52 HDL Cholesterol 34 mg/dL (40-60) L 11/11/21 05:52 Cholesterol/HDL Ratio 4.53 11/11/21 05:52 Lipase 73 U/L (73-393) 11/10/21 14:41 Home Medications: RX: Fluticasone Propionate [Flonase Allergy Relief] 2 spray IH DAILY 08/30/18 RX: Trazodone [Desyrel*] 2 tab PO BEDTIME 08/30/18 RX: Aspirin Chewable [Aspirin Chewable*] 81 mg PO DAILY #30 tab.chew 08/31/18 RX: Atorvastatin Calcium [Lipitor] 80 mg PO BEDTIME #30 tab 08/31/18 RX: Clopidogrel Bisulfate [Plavix*] 75 mg PO DAILY #30 tablet 08/31/18 RX: Tamsulosin [Flomax*] 0.4 mg PO BEDTIME cap 08/31/18 RX: Cetirizine HCl [Zyrtec] 10 mg PO DAILY 08/24/19 RX: Ezetimibe [Zetia*] 10 mg PO DAILY 08/24/19 RX: Fexofenadine HCl 180 mg PO DAILY 08/24/19 RX: Pantoprazole Sodium [Protonix] 40 mg PO DAILY 08/24/19 RX: Furosemide [Lasix*] 2 tab PO DAILY 11/10/21 RX: Montelukast [Singulair*] 1 tab PO DAILY 11/10/21 Vit B Complex B-100 1 tab PO DAILY 11/10/21 RX: Metoprolol Succinate [Toprol Xl*] 50 mg PO DAILY #30 tab 11/12/21 New Medications: RX: Metoprolol Succinate [Toprol Xl*] 50 mg PO DAILY #30 tab Physician Discharge Instructions: 1. Please schedule a follow-up appointment with your PCP (Dr. Eubanks) in 3-5 days 2. Please schedule a follow-up appointment with your National [employer]iter (Dr. Tilley) in 3-5 days Diet: AHA Activity: Ad stuart Followup: Robert Tilley MD [ACTIVE - CAN ADMIT] - (aquatics specialist- call to schedule an appointment) Hugh Eubanks MD [Primary Care Provider] - (call to schedule an appointment) Time spent managing pt's care (in minutes): 20
[2021-11-12 12:25] VITALS: TEMP 97.8
--- NOTE | 2021-11-12 20:40 | OP ---
Date of Procedure: 11/12/2021 Surgeon: Robert Tilley MD Infrastructure Project Manager: Ms. Teresita Kearney. Indication: Mr. Pereira is 76, with history of hypertension, coronary artery disease, multiple stent s in the past, atypical chest pain with palpitation, positive stress test in the hospital as an inpat ient. Procedure In Detail: Brought to the labor/excavator today, prepped and draped in routine sterile fashion. Given Versed and fentanyl for sedation. 6-Slovak sheath introduced in the right common femoral arter y successfully using Seldinger technique and 10 cc of Xylocaine. Common femoral artery angiogram was done. It was normal. Angio-Seal was used to close the case. Jaren catheter left and right were used to cannulate the left main and right main respectively. The RCA was very large, dominant, ectat ic, aneurysmatic with about a 30% to 40% mid RCA stenosis. Left main had about a 20% to 30% proximal stenosis. The LAD itself had a proximal mid LAD stent that was patent. There was a diagonal stent that was patent. OM1 was completely occluded. OM2 had a proximal stent that was patent. Distal in the LAD, there was a 50% to 60% stenosis, very close to the tip of the LAD. Patient tolerated the pr ocedure well. There were no complications. Blood Loss: 5 cc. Final Diagnosis: Moderate to severe coronary artery disease. Plan: For medical therapy. Continue present regimen, double the metoprolol. He will come to see me in the office in 2 weeks. He will be at bedrest for 2 hours after the Angio-Seal. Anesthesia: Total conscious sedation was 30 minutes. DUSTIN/NIMO Voice ID: [id number] Report ID: [id number]
== END 2021-11-12 13:10 | disposition home or self-care (01) ==
LOC: ER 14:14 → ERHOLD 16:52 → 4TH 20:25
PROVIDERS: ADMIT Hospitalist; ATTEND Internal Medicine
DX: I25.10 Atherosclerotic heart disease of native coronary artery without angina pectoris (principal); I25.82 Chronic total occlusion of coronary artery; I10 Essential (primary) hypertension; E78.5 Hyperlipidemia, unspecified; I35.1 Nonrheumatic aortic (valve) insufficiency; I07.1 Rheumatic tricuspid insufficiency; I25.2 Old myocardial infarction; R60.9 Edema, unspecified; K21.9 Gastro-esophageal reflux disease without esophagitis; N40.0 Benign prostatic hyperplasia without lower urinary tract symptoms; Z95.5 Presence of coronary angioplasty implant and graft; Z85.46 Personal history of malignant neoplasm of prostate; Z79.02 Long term (current) use of antithrombotics/antiplatelets; Z79.82 Long term (current) use of aspirin; Z79.899 Other long term (current) drug therapy; Z20.822 Contact with and (suspected) exposure to COVID-19
CPT/HCPCS: 93005; 93017; 93306; 85025 ×2; 80048 ×2; 36415; 83735; 85610; 80061; 80076; 85730; 84484 ×3; 83690; 83880; 71045; 93454; 78452; 96375; 96374; 99285; 87811; C1893; Q9966; C1760; G0269; J2250; J3010; J1650 ×3; J2270; J2785; G0378 ×5; J7040; J2405; A9500; J0583

== ENCOUNTER 2022-09-22 15:53 | Inpatient (IN) | payer OTHER ==
--- OUTSIDE RECORDS SUMMARY | 2022-09-22 15:59 | XMS REPORT | Continuity of Care Document ---
:1945 Author Organization [facility] t Address [address] [place] [address] [place] [id number] Care Team Providers Name Role Phone Syeda Andujar Attending Clinician Unavailable Brook Mae Attending Clinician Unavailable GC_PANTHER_Prihoda_C Attending Clinician Unavailable Only, Adc Test Attending Clinician Unavailable Cassius Raza MD Attending Clinician CASSIUS RAZA Attending Clinician Unavailable William Waters RN Attending Clinician Unavailable UNKNOWN Attending Clinician Unavailable Physician, No Primary or Family Admitting Clinician Unavaila ble GC_PANTHER_Prihoda_C Admitting Clinician Unavailable Payers Payer Name Policy Type Policy Number Effective Date Expiration Date S [facility] [id number] (MEDICARE REPLACEMENT/ADVANTAGE - PPO) Problems This patient has no known problems. Allergies, Adverse Reactions, Alerts Allergy Allergy Status Severity Reaction(s) Onset Inactive Treating Comm ents Source Name Type Date Date Clinician No Known DA Active U 2019- [facility]ie 02-18 [facility] 00:00: Gracia 00 [facility] No Known DA Active U 2019-02 [facility] Allergie 02-18 [facility] 00:00: Gracia 00 [facility] No Known DA Active U [facility]ie 09-08 [place] [facility] 00:[facility]: [facility] No Known DA Active U [facility]ie 09-08 [place] [facility] 00:[facility]: [facility] [facility] No Known DA Active U 2005-02 [facility] Contrast 2-29 [place] [facility] No Known DA Active U 2005-02 [facility] Drug 2-29 [place] [facility]ie 00:[facility]: [facility] No Known DA Active U 2005-02 [facility] Food [place] [facility]ie 00:00: [facility] No Known DA Active U 2005- [facility] Other [place] [facility]ie 00:00: [facility]ope [facility] No Known DA Active U 2005-02 [facility] Drug 04-15 [place] [facility] 00:00: [facility]ope [facility]ces 00 [facility] No Known DA Active U 2005-02 [facility] Drug 04-15 [place] [facility] 00:00: [facility]ope [facility]ces 00 [facility] NO KNOWN Drug Active Univers ALLERGIE Class ity of S [facility] Social History Social Habit Start Date Stop Date Quantity Comments Source Exposure to Not sure [facility] SARS-CoV-2 (event) Medica Branch Sex Assigned At [birth year] [facility] 00:00:00 00:00:00 [facility] [place] Smoking Status Start Date Stop Date Source Unknown if ever smoked [facility] Medications This patient has no known medications. Procedures This patient has no known procedures. Encounters Start End Encounter Admission Attending Care Care Encounter Source Date/Time Date/Time Type Type Clinicians Facility Department ID 2019-12-30 Inpatient MYESHA Andujar [facility] DAYS [id number] [facility] 09:30:00 M[facility]addal [facility] 2019-09-14 Inpatient JASON Reese CAT [id number] [facility] 12:18:[address] 2022-09-13 2022-09-13 Outpatient GC_PANTHER_ PRIV PRIV [id number] [facility] 00:00:00 00:00:00 Prihoda_C [id number] [facility] 2022-09-13 2022-09-13 Outpatient GC_PANTHER_ PRIV PRIV [id number] [facility] 00:00:00 00:00:00 Prihoda_C [id number] [facility] 2022-09-09 2022-09-09 Outpatient GC_PANTHER_ PRIV PRIV [id number] [facility] 00:00:00 00:00:00 Prihoda_C [id number] [facility] 2022-09-09 2022-09-09 Outpatient GC_PANTHER_ PRIV PRIV [id number] [facility] 00:00:00 00:00:00 Prihoda_C [id number] [facility] 2022-09-09 2022-09-09 Outpatient GC_PANTHER_ PRIV PRIV [id number] [facility] 00:00:00 00:00:00 Prihoda_C [id number] [facility] 2022-08-26 2022-08-26 Outpatient GC_PANTHER_ PRIV PRIV [id number] [facility] 00:00:00 00:00:00 Prihoda_C [id number] [facility] 2022-08-26 2022-08-26 Outpatient GC_PANTHER_ PRIV PRIV [id number] [facility] 00:00:00 00:00:00 Prihoda_C [id number] [facility] 2022-07-28 2022-07-28 Outpatient GC_PANTHER_ PRIV PRIV [id number] [facility] 00:00:00 00:00:00 Prihoda_C [id number] [facility] 2022-07-27 2022-07-27 Outpatient GC_PANTHER_ PRIV PRIV [id number] [facility] 00:00:00 00:00:00 Prihoda_C [id number] [facility] 2022-06-27 2022-06-27 Outpatient GC_PANTHER_ PRIV PRIV [id number] [facility] 00:00:00 00:00:00 Prihoda_C [id number] [facility] 2022-06-27 2022-06-27 Outpatient GC_PANTHER_ PRIV PRIV [id number] [facility] 00:00:00 00:00:00 Prihoda_C [id number] [facility] 2022-06-26 2022-06-26 Outpatient PRIV PRIV [id number] [facility] 00:00:00 00:00:00 [id number] Medica l 2020-07-18 2020-07-18 Laboratory Only, Adc Test [facility] [id number] Univers 10:25:20 10:40:20 Only [id number] [facility] [phone] [facility] [address] 2020-07-18 2020-07-18 Outpatient R [facility] [id number] Univers 10:15:00 10:15:00 CASSIUS ity of [facility] 2020-07-18 2020-07-18 Letter BLANCHE Waetrs [id number] Univers 00:00:00 00:00:00 (Out) William TINAJERO [id number] ity [facility] 4.2.7.2.686 Mario as [phone] [address] 2019-12-20 2019-12-20 Outpatient Mikaelavinash, HCACL LABO [id number] [facility] 13:17:00 13:17:00 Mufaddal [address] [facility] 2019-11-25 2019-11-25 Outpatient [facility], HCATO RADI [id number] [facility] 09:30:00 09:30:00 Mufaddal [facility] 2019-09-09 2019-09-09 Outpatient UNKNOWN HCACL LABO [id number] [facility] 15:31:00 15:31:00 13 [facility] Results Test Description Test Time Test Comments Results Result Comments Source Novel Coronavirus 2019 Inhouse 2019-12-21 02:09:00 Test Item Value Reference Range Interpretation Comme nts Novel Coronavirus 2018 Negative Negative Posit harrison results are indicative of the Inhouse (test code = presenc e fyIKRG-EfT-0 RNA, clinical COVNONPUI) correlation wit h patient [...] for the identification of SARS-CoV-2 RNA usingthe RefferedAgent.com000 System under th e FDA Emergency UseAuthorizatio n. The testing is performed by sera hi in the procedures for the Palacio ElementsLocal000 moleculardiagno stic SARS-CoV-2 assay in vitro. Novel Coronavirus 2018 [id number] 02:09:00 Test Item Value Reference Range Interpretation [...] for the identification of SARS-CoV-2 RNA usingthe RefferedAgent.com000 Sy stem under the FDA Emergen cy UseAuthorizatio n. The testing is perf ormed by mariajose pepe in the procedures for the Launchpilots molecular diagnostic SARS-CoV-2 assa y in vitro. - MRI UP JNT W/O CONT [id number] 15:59:00 Patient Name: BLANCHE PEREIRA Unit No: [id number] EXAMS: CPT CODE: [id number] MRI UP JNT W/O CONT [id number] MR of the right shoulder without contrast [...] Mild intramuscular edema of the supraspinatus is present. Long head biceps tendon: Marked tendinosis is demonstrated without definite tear. Labrum: No definite labral tear is visualized. Cartilage/ bone: No full thickness chondral defect. No acute fracture.No suspicious osseous lesion. Other: Small glenohumeral joint effusion. IMPRESSION: 1. Full-thickness tear of the near entire supraspinatus tendon, located 1 cm proximal to the tendon insertion. 2. Marked biceps tendinosis. 3. Moderate AC joint degenerative change. at 1554 Reported and signed by: Julian Patel M.D. CC: Syeda Andujar MD Technologist: TERRIE ZAVALA RT(R) Transcribed D/ (0741) t.ESTHERR.[facility] NAME: BLANCHE PEREIRA [address] [facility] PHYS: GOMMU. - Delio Andujarsussy Natacha : 1945 AGE: 74 SEX: M [place] [address] LOC: Y.MRI PHONE #: [phone] EXAM DATE: 11/25/2019 STATUS: DEP CLI FAX #: [phone] RAD #: D/C DT PAGE 1 Signed Report Patient Name: BLANCHE PEREIRA Unit No: [id number] EXAMS: CPT CODE: [id number] MRI UP JNT W/[place] [id number] <Continued> Orig Print D/T: S: 11/28/2019 (7436) [facility] NAME: BLANCHE PEREIRA [address] [facility] PHYS: GOMMU. - Syeda Andujar : 1945 AGE: 74 SEX: M [place], [place] [address] LOC: Y.MRI PHONE #: [phone] EXAM DATE: 11/25/2019 STATUS: DEP CLI FAX #: [phone] RAD #: D/C DT PAGE 2 Signed ReportCOAGULATION TIME [id number] 10:28:00 Test Item Value Reference Range Interpretation Comments COAGULATION TIME ACTIVATED (test 241 SECONDS 74-137 H code = ACT) COAGULATION TIME [id number] 09:52:00 Test Item Value Reference Range Interpretation Comments COAGULATION TIME ACTIVATED (test 351 SECONDS 74-137 H code = ACT) Novel Coronavirus 07:35:00 Test Item Value Reference Range Interpretation Comments Novel Coronavirus Negative Negative Positive r esults are 2019 Inhouse (test indicativ e of the presence code = XDHSX21YN) ofSARS-CoV -2 RNA, clinical correlation wit h [...] results are indicative of t he presence [id number]-[id number] RN A, clinical correlation wit h patient [...] personneltraine d in the procedures for the CloudAccess M2000 molecular diagnostic SARS-CoV-2 assa y in vitro. Novel Coronavirus 07:34:00 Test Item Value Reference Range Interpretation Comments Novel Coronavirus Negative Negative Positive r esults are 2019 Inhouse (test indicativ e of the presence code = EAPVP33TT) ofSARS-CoV -2 RNA, clinical correlation wit h [...] SARS-CoV-2 assa y in vitro. COMPREHENSIVE METABOLIC [id number] 14:12:00 Test Item Value Reference Range Interpretation [...] PHOSPHATASE (test code = ALKP) CBC W/AUTO [id number] 14:06:00 Test Item Value Reference Range Interpretation [...] = BA#) 0.02 x10 3/uL 0.0-0.20 N Notes Date/Time Note Provider Source 2019-12-30 13:01:00-00:00 [id number] [place] [address] PATIENT NAME: BLANCHE PEREIRA ADMIT DATE: 0 ACCOUNT NO: [id number] ROOM NO: AGE: 74 REPORT TYPE: OPERATIVE REPORT SEX: M ADMITTING PHYSICIAN: ATTENDING PHYSICIAN:Syeda Andujar MD OPERATION DATE: 12/30/2019 PREOPERATIVE DIAGNOSES: Right shoulder rotator c uff tear, biceps tendinosis, subacromial impingement, superior tear. POSTOPERATIVE DIAGNOSES: 1. Right shoulder full-thickness supraspinatus a nd infraspinatus tendon tear. 2. Right shoulder long head of biceps tear with tendinosis. 3. Right shoulder type 2 superior labral anterio r and posterior tear. 4. Right shoulder recalcitrant subacromial impin gement with type 2 acromion. PROCEDURES PERFORMED: 1. Right shoulder diagnostic arthroscopy with arthroscopic rotator cuff repair (66764). 2. Right shoulder arthroscopic biceps tenodesis (19190). 3. Right shoulder arthroscopic debridement of garcia perior, anterior, posterior labrum, glenohumeral joint, (98146). 4. Right shoulder arthroscopic subacromial decom pression with acromioplasty (39594). ATTENDING SURGEON: Syeda Andujar MD DONOR SERVICES SPECIALIST: Teresita BEAR The skilled assistance of the bindery library technical assistant surgeon was necessary during this complex shoulder reconstructive procedur e.? They assisted with every aspect of the operation including, but not limited to, pro per and safe positioning of the patient, obtaining adequate surgical exposur e, manipulation of surgical instruments, perfect visualization of the surgic al field, the meticulous task of assisting with suture passage and assistance during implant placement, manipulation of the instrumentation during impla nt placement, visualization during suture passage, assistance during knot ty ing, assisting during work around the shoulder, assisting with access to ea ch portion of the joint, assisting with limb positioning during the proce dure, incision closure, dressing placement, assistance with moving the p atient off of the operating table, proper placement of the postoperative sli ng, and assistance with patient transfer from the operating room. Their assistance allowed me to perform the most sensitive and technical potions of this operation using 2 hands, thus enhancing patient safety.? This woul d not be possible without the help of a skilled bindery library technical assistant familiar with the pr ocedure and capable of safely performing the aforementioned tasks.? Ou r facility is not a teaching hospital, and as such, no surgical residents or interns we re available to assist. PATIENT NAME: BLANCHE PEREIRA [id number] ANESTHESIA: General plus interscalene nerve bloc k. ESTIMATED BLOOD LOSS: 30 mL. COMPLICATIONS: None. SPECIMENS: None. DISPOSITION: Stable to PACU. FINDINGS: Chondral surfaces of the glenoid were intact. Humeral head demonstrated focal grade I changes in the jose l head. There was a type 2 superior labral anterior to posterior tear exten ding to sublabral foramen. There was thickening, inflam mation, and hypertrophy with significant tearing of the long head of biceps tendon with tendinosis. There was a full-thickness supraspinatus tendon tear measuring 20 m m in anterior posterior direction with delamination in the posterior aspect of the infr aspinatus. Tissue quality was good, amenable to repair in a layered . Inflamma tion, and hypertrophy of subacromial bursa with type 2 acromion n ecessitated bursectomy and subacromial decompression. Shoulder joint was stable. IMPLANTS: One [employer] anchors in the medial row and two in lateral to complete a transosseous equivalent do uble row, 1 x 2 rotator cuff repair. Two additional mini tape sutures were pa ssed through the superior delaminated portion of the rotator cuff before i ts attachment was passed with same lateral row anchors and this was utilized f or the biceps tenodesis. INDICATIONS: Mr. Pereira is a pleasant 74-year-o ld male, who has been experiencing right shoulder pain, weakness, loss of motion, loss of function, worsening over the past 1 year. The pain worsens with overhead activities and at night. The pain has been refractory to multiple conservative treatment op tions for over 6 months including selective rest, activity modification, therapeutic exercises, and prescription anti-inflammatory use. The pain and weakness are severe, causing a loss of shoulder function, and affecting activ ities of daily living. Preoperative exam demonstrated weakness with rot ator cuff testing, decreased active range of motion, positive biceps tendinit is, positive Neer?s and Hawkin?s impingement signs.Preoperative MRI demo nstrated rotator cuff tear, biceps tendinitis. The risks and benefits of continued conservative , alternative, and surgical options were discussed at length. Specific risks of shoulder arthroscopy were discussed at length including infection, nerve injury, venous thromboembolism, continued pain, stiffness, risk of retear, failu re of the biceps tenodesis, failure of the rotator cuff repair, the need for further surgery, and the risks of anesthesia. The expected postoperative course was discussed at length. The patient understood, agreed, and elec paige to proceed with the aforementioned surgery. Informed consent was obt ained. PROCEDURE IN DETAIL: The patient was identified in the preoperative holding area and the operative site was marked. The kofi ent was brought in the operating room and placed in the modified beach chair position. Once appropriate anesthesia was obtained, prophylacti c IV antibiotics were administered. An examination under anesthesia wa s performed. The operative shoulder was prepped and draped in the usual allison rile fashion. A time- out was performed verifying the patient's name, the oper ative site, procedure to be performed, administration of IV antibiotics, and the need for any specific PATIENT NAME: BLANCHE PEREIRA 6337 equipment. Utilizing a standard posterior portal with an #1 1 blade to the skin and blunt penetration of the glenohumeral joint, a diagnos tic arthroscopy of the shoulder was performed with the findings as stat ed above. Anterior portal was created. The superior labral anterior to posteri or tear was identified, extending into the sublabral foramen. The anteri or, superior, and posterior portions of the labrum were debrided back to smo oth stable configuration. The biceps was inspected and tendinosis along the bi ceps tendon was visualized. The biceps was then released off the superior la bral attachment. The rotator cuff was inspected. After this was completed, a final diagnostic arthroscopy demonstrated no further treatable pathology in [facility] joint. The arthroscopic equipment was removed and placed the subacromial space. An accessory lateral portal was created. Hypertr ophic thickening and inflammation in the subacromial bursa was noted. A subacromial bursectomy occurred and small acromioplasty occurred, creat ing a type 1 acromion. The rotator cuff was inspected and the rotator c uff tear was identified. This was subsequently repaired by removing all debris overlying the footprint creating a bleeding surface of bone without dist urbing the subchondral plate. One double-loaded anchors was placed in the medi al aspect of the footprint centrally. The sutures were passed through the t endon with a self retrieving suture passer. One pair was passed centrally in a mattress fashion. The other pair was passed anteriorly and posteriorly. The central sutures were tied sequentially with arthroscopic knots. The termin al ends of the sutures were placed in a cruciate configuration throu gh two lateral anchors. This completed the transosseous equivalent double- row rotator cuff repair. This secured the rotator cuff well through a range of motion. Subdeltoid dissection occurred down to [facility] bicipital groove. The biceps sheath was released, and the biceps tendon was subluxed out of the groove. Bleeding was controlled with electrocautery. The bicipita l groove was gently decorticated. The biceps was placed in the appro priate tension. A suture from the anterolateral anchor was placed around the b iceps in a lasso- loop technique. The sutures were sequentially tied do wn and cut. This secured the biceps tenodesis at the appropriate tension. Final diagnostic arthroscopy demonstrated no fur ther treatable pathology, so the arthroscopic equipment was removed from the shoulder after the fluid was drained from it. Portal sites were closed with b uried Monocryl suture. A sterile dressing followed by a sling was applied . The patient was awakened from anesthesia without complication, transferred to the postoperative care unit in stable condition. POSTOPERATIVE PLAN: Discharge home once discharg e criteria are met. Oral pain medication for pain control. VTE prophylaxis ini tiated. Sling for 4 weeks, which was fitted for home use, and is medically necessary to protect the rotator cuff repair while the shoulder regains f ull motion and strength. Follow-up in the office in 10 to 14 days or soon er as needed. Start pendulum exercises, and advance per rotator cuff repair p hysical therapy protocol. Dictated By: Syeda Andujar MD PATIENT NAME: BLANCHE PEREIRA 6337 WT: OP:GLENN/DUANEU.01/NTS Conf#: [id number]/DID#: [id number] Authenticated and Edited by Syeda Andujar MD On 01/08/20 4:33:27 PM at 1635 PATIENT NAME: BLANCHE PEREIRA 6337 2019-09-20 09:13:00-00:00 [id number] [facility] [address] [place] [address] PATIENT NAME: BLANCHE PEREIRA ADMIT DATE: 0 ACCOUNT NO: [id number] ROOM NO: P.[facility] AGE: 73 REPORT TYPE: OPERATIVE REPORT SEX: M ADMITTING PHYSICIAN:Yan Briseno MD ATTENDING PHYSICIAN:Brook Mae MD OPERATION DATE: 09/14/2019 PREOPERATIVE DIAGNOSIS: POSTOPERATIVE DIAGNOSIS: PROCEDURES PERFORMED: 1. Selective coronary angiogram. 2. PCI of severe D3 stenosis, 90% stenosis using 2.25 x 12 mm Synergy drug-eluting stent. ARAVIND 3 flow before and after PCI. A 0% residual stenosis post-PCI and lesion length is 10 mm. 3. PCI of severe OM2 stenosis using 2.25 x 12 mm Synergy drug-eluting stent. ARAVIND 3 flow before and after PCI 90% stenosis and 0% residual stenosis post-PCI. Lesion length is 8 mm. 4. FFR/iFR of the mid LAD 50% stenosis. A iFR value being negative at 0.95 and FFR value being negative at 0.89. BEDSPREAD CUTTER HAND: Dr. Brook Mae. DONOR SERVICES SPECIALIST: Dr. Yan Briseno. ACCESS: Right radial artery, 6-Macedonian. Closure T R band. COMPLICATIONS: None. ANESTHESIA: BLEEDING: Less than 10 mL and the total sedation time was 65 minutes. DESCRIPTION OF PROCEDURE: After risks, benefits, and alternatives were explained to the patient, he agreed to proceed and signed informed consent, the patient was brought into the cardiac catheteriza tion laboratory, prepped and draped in the usual sterile fashion and used fentanyl and Versed in incremental doses to achieve adequate moderate sedation. Sub sequently, we access right radial artery using a pediat migdalia micropuncture kit. Then, we inserted a 6-Macedonian slender sheath and I took 6-Macedonian 3.0 EBU guide into the aortic root over J-wire, engaged the left main coronary artery se lectively and took a standard views and then proceeded for intervention. Initi ally, we took a FFR wire into the aortic root and equalize d the pressures and then we used a systemic heparin and heparin to assure ACT level above 250 throug hout the procedure. Then, we took the FFR wire to cross the mid LAD l esion and recorded iFR was 0.95. Then, we gave adenosine and record ed FFR was 0.89 indicative of insignificant lesion. Then, we took the wire out a nd took angiograms, there were no complications and PATIENT NAME: BLANCHE PEREIRA 2294 we decided to move to treat the diagonal and OM disease. We took a short Runthrough wire into the D3, which is a reasonab le size vessel with severe stenosis across the stenosis and we used a 2.0 x 12 mm compliant balloon to predilate and then we placed a 2.25 x 12 mm Synergy drug-eluting stent with good results. Then, we took a Runthrough wire into th e left circumflex artery and passed the stenosis in the OM2 branch and predil ated using a 2.0 x 12 mm compliant balloon. Then, we took a 2.25 x 12 mm Synergy drug-eluting stent across the stenosis deployed successfully with g ood results and 0% residual stenosis. Then, we removed a ll wires and catheters outside the body and removed the sheath and closed the access with TR band wi th good hemostasis. FINDINGS: 1. Severe OM2 stenosis, status post successful P CI as above. 2. Severe D3 proximal stenosis, status post succ essful PCI as above. 3. Moderate mid LAD stenosis 50%, which was dete rmined to be insignificant by iFR with a value of 0.95 and FFR value of 0.89. The left to be treated medically. RECOMMENDATIONS: 1. Dual antiplatelet therapy, high intensity sta tin. 2. The patient can be discharged once di scharge criteria are met. Follow up in the office in [place] in 4 weeks post-PCI. Dictated By: Yan Briseno MD WT: OP:PDIXIE/REX/URSULA Conf#: [id number]/DID#: [id number] Authenticated by Yan Briseno MD On 09/20/2019 11:57:19 AM Electronically Signed by Yan Briseno MD on at 1157 PATIENT NAME: BLANCHE PEREIRA 2294 2019-09-09 13:04:00-00:00 [id number] [place] [address] PATIENT NAME: BLANCHE PEREIRA ADMIT DATE: ACCOUNT NO: [id number] ROOM NO: AGE: 73 REPORT TYPE: eELECTROCARDIOGRAM SEX: M ADMITTING PHYSICIAN: ATTENDING PHYSICIAN: Brook Mae MD Order: [id number] Test Reason : PRE OP Test Date/Time Stamp: ThuSep 09 2019 13:04:42 Blood Pressure : / mmHG Vent. Rate : 061 BPM Atrial Rate : 061 BPM P-R Int : 168 ms QRS Dur : 150 ms QT Int : 484 ms P-R-T Axes : 068 037 075 degree s QTc Int : 487 ms Sinus rhythm with marked sinus arrhythmia Right bundle branch block Abnormal ECG No previous ECGs available Confirmed by CHRISTO EASLEY ([id number]) on 09/11/2019 1 2:00:09 PM Referred By: Brook Mae Confirmed by:CHRISTO ARMENDARIZ Electronically Signed by Christo Easley MD on at 1200 PATIENT NAME: JEANETTEBLANCHE 2294
[2022-09-22 16:52] LABS: Hematocrit 40.6 % (39.6-49.0); Lymphocytes % 16.6 % (15.3-44.8); MCV 93.7 fL (80-100); Platelets 172 thou/uL (152-406); RBC Red Blood Cell Count 4.33 M/uL (4.33-5.43)
[2022-09-22 16:54] LABS: Protime INR 1.1
--- NOTE | 2022-09-22 17:01 | EDPHYS ---
Physician Documentation [facility] Name: Marcellus Pereira Age: 77 yrs Sex: Male : 1945 Arrival Date: 09/22/2022 Time: 15:53 Bed 18 Private MD: ED Physician Travon Fisher HPI: 09/22 16:14 This 77 yrs old Male presents to ER via Unassigned with complaints of Leg Swelling. rn 16:14 This 77 yrs old Male presents to ER via Unassigned with complaints of Leg Swelling. rn 16:14 The patient has shortness of breath with light activity, during heavy activity. Onset: rn The symptoms/episode began/occurred at an unknown time. Duration: The symptoms are intermittent. The patient's shortness of breath is aggravated by exertion, light activity, supine position, talking, walking. Associated signs and symptoms: Pertinent negatives: chest pain, productive cough, fever. Severity of symptoms: At their worst the symptoms were moderate in the emergency department the symptoms are unchanged. The patient has experienced similar episodes in the past. The patient has been recently seen by a physician:. Sent by Dr. Briseno for admission for CHF exacerbation. NO fever. + recent abx for cough. . Historical: - Allergies: 16:19 No Known Allergies; me1 - Home Meds: 16:19 metoprolol succinate 50 mg oral Tablet, Extended Release 24 hr 1 tab daily [Active]; me1 Lipitor 80 mg Oral tablet every day at bedtime [Active]; Zetia 10 mg Oral tablet daily [Active]; aspirin 81 mg Oral capsule 1 cap daily [Active]; tizanidine 4 mg oral capsule 2 times per day [Active]; Flomax 0.4 mg Oral capsule 1 cap daily [Active]; pantoprazole 40 mg oral granules delayed release for susp packet daily [Active]; thorazine 150 mg 1.5 tablets nightly for Sleep Disorder [Active]; - PMHx: 16:19 Arthritis; High Cholesterol; Hypertensive disorder; Congestive heart failure; me1 - PSHx: 16:19 cardiac stents; me1 - Immunization history:: Adult Immunizations up to date. - Social history:: Smoking status: Patient denies any tobacco usage or history of. - Family history:: not pertinent. - Hospitalizations: : No recent hospitalization is reported. ROS: 16:14 Constitutional: Negative for fever, chills, and weight loss, Cardiovascular: + lower rn ext edema Respiratory: + sob Abdomen/GI: Negative for abdominal pain, nausea, vomiting, diarrhea, and constipation, MS/Extremity: Negative for injury and deformity, Skin: Negative for injury, rash, and discoloration, Neuro: Negative for headache, weakness, numbness, tingling, and seizure. Exam: 16:14 Constitutional: This is a well developed, well nourished patient who is awake, alert, rn and in no acute distress. Head/Face: Normocephalic, atraumatic. Cardiovascular: Regular rate and rhythm. No pulse deficits. Respiratory: + mild tachypnea, no retractions Skin: Warm, dry MS/ Extremity: Pulses equal, no cyanosis. Neurovascular intact. Full, normal range of motion. Equal circumference. 2+ pitting edema bilateral lower ext. Neuro: Awake and alert, GCS 15 Vital Signs: 16:00 BP 138 / 80; Pulse 67; Resp 16; Pulse Ox 97% on R/A; me1 16:08 BP 138 / 80; Pulse 65; Resp 18; Temp 98.4(O); Pulse Ox 99% on R/A; Weight 101.6 kg; me1 Height 5 ft. 11 in. ; Pain 0/10; 17:00 BP 130 / 68; Pulse 59; Resp 16; Pulse Ox 97% ; me1 18:00 BP 141 / 69; Pulse 71; Resp 16; Pulse Ox 97% on R/A; me1 19:30 BP 138 / 84; Pulse 60; Resp 17 S; Pulse Ox 98% on R/A; ha1 16:08 Body Mass Index 31.24 (101.60 kg, 180.34 cm) me1 16:08 Pain Scale: Adult me1 MDM: 15:55 Patient medically screened. rn 16:58 Differential diagnosis: Anxiety Reaction CHF exacerbation, Chronic Obstructive rn Pulmonary Disease Myocardial Infarction pneumonia, Pneumothorax pulmonary edema. Data reviewed: vital signs, nurses notes, lab test result(s), EKG, radiologic studies, plain films, and as a result, I will admit patient. Consideration of Admission/Observation Patient was admitted/placed on observation. Escalation of care including admission/observation considered. Management of patient was discussed with the following: Motorcycle Mechanic Apprentice: Dr. Briseno, requests admission for CHF exacerbation and diuresis. . Counseling: I had a detailed discussion with the patient and/or guardian regarding: the historical points, exam findings, and any diagnostic results supporting the discharge/admit diagnosis, lab results, radiology results, the need for further work-up and treatment in the hospital. 09/22 15:56 Order name: Basic Metabolic Panel; Complete Time: 17:14 rn 09/22 15:56 Order name: CBC with Diff; Complete Time: 16:56 rn 09/22 15:56 Order name: LFT's; Complete Time: 17:14 rn 09/22 15:56 Order name: NT PRO-BNP; Complete Time: 17:14 rn 09/22 15:56 Order name: PT-INR; Complete Time: 16:56 rn 09/22 15:56 Order name: Troponin HS; Complete Time: 17:14 rn 09/22 17:15 Order name: SARS RAPID rn 09/22 17:44 Order name: Magnesium EDNY 09/22 17:44 Order name: Phosphorus EDNY 09/22 17:44 Order name: Urinalysis w/ reflexes EDNY 09/22 17:44 Order name: Basic Metabolic Panel EDNY 09/22 17:44 Order name: Basic Metabolic Panel EDMS 09/22 17:44 Order name: CBC with Automated Diff EDMS 09/22 17:44 Order name: CBC with Automated Diff EDMS 09/22 17:44 Order name: Lipid Profile EDNY 09/22 17:44 Order name: Lipid Profile EDNY 09/22 17:44 Order name: NT PRO-BNP EDNY 09/22 17:44 Order name: NT PRO-BNP EDNY 09/22 15:56 Order name: XRAY Chest (1 view); Complete Time: 17:16 rn 09/22 15:56 Order name: EKG; Complete Time: 15:56 rn 09/22 17:44 Order name: CONS Physician Consult EDNY 09/22 17:44 Order name: Heart Healthy EDNY 09/22 15:56 Order name: Cardiac monitoring; Complete Time: 16:29 rn 09/22 15:56 Order name: EKG - Nurse/Tech; Complete Time: 16:54 rn 09/22 15:56 Order name: IV Saline Lock; Complete Time: 16:41 rn 09/22 15:56 Order name: Labs collected and sent; Complete Time: 16:41 rn 09/22 15:56 Order name: O2 Per Protocol; Complete Time: 16:29 rn 09/22 15:56 Order name: O2 Sat Monitoring; Complete Time: 16:29 rn Administered Medications: No medications were administered Disposition Summary: 09/22/22 17:01 Hospitalization Ordered Hospitalization Status: Inpatient Admission rn Provider: Charly Carr rn Location: Telemetry/MedSurg (Inpatient) rn Condition: Stable rn Problem: new rn Symptoms: have improved rn Bed/Room Type: Standard rn Room Assignment: 414(09/22/22 19:16) cg Diagnosis - Unspecified combined systolic (congestive) and diastolic (congestive) heart failure rn - Dyspnea, unspecified rn Forms: - Medication Reconciliation Form rn - SBAR form rn Signatures: Dispatcher [employer] EDTravon George MD MD rn Garcia, Cindy RN RN Imani Schultz, RN RN me1 Corrections: (The following items were deleted from the chart) 17:22 17:01 Acute pulmonary edema rn rn 19:16 17:01 rn
--- NOTE | 2022-09-22 17:01 | ER ---
Nurse's Notes [facility] Name: Marcellus Pereira Age: 77 yrs Sex: Male : 1945 Arrival Date: 09/22/2022 Time: 15:53 Bed 18 Private MD: Diagnosis: Unspecified combined systolic (congestive) and diastolic (congestive) heart failure;Dyspnea, unspecified Presentation: 09/22 16:18 Chief complaint: Patient states: bilateral leg swelling. Sent by Dr Briseno. [place] [facility] [place] Vaccine status: Patient reports receiving the 2nd dose of the covid vaccine. At this time, the client does not indicate any symptoms associated with coronavirus-19. Ebola Screen: No symptoms or risks identified at this time. Initial Sepsis Screen: Does the patient meet any 2 criteria? No. Patient's initial sepsis screen is negative. Does the patient have a suspected source of infection? No. Patient's initial sepsis screen is negative. Risk Assessment: Do you want to hurt yourself or someone else? Patient reports no desire to harm self or others. Onset of symptoms is unknown. 16:18 Method Of Arrival: [place] [facility] [place]:18 Acuity: NANCY 3 nc1 Triage Assessment: 16:19 General: Appears comfortable, obese, well groomed, well developed, Behavior is calm, me1 cooperative, appropriate for age, Reports bilateral leg swelling that did not resolve when he increased his lasix at home. Denies fever, feeling ill, chills. Pain: Denies pain. Neuro: Level of Consciousness is awake, alert, obeys commands, Oriented to person, place, time, situation, Appropriate for age. Cardiovascular: Capillary refill < 3 seconds Patient's skin is warm and dry. Cardiovascular: +2 pitting edema to BLE. . Respiratory: Respiratory effort is even, unlabored, Respiratory pattern is regular, symmetrical. GI:. Historical: - Allergies: 16:19 No Known Allergies; nc1 - Home Meds: 16:19 metoprolol succinate 50 mg oral Tablet, Extended Release 24 hr 1 tab daily [Active]; me1 Lipitor 80 mg Oral tablet every day at bedtime [Active]; Zetia 10 mg Oral tablet daily [Active]; aspirin 81 mg Oral capsule 1 cap daily [Active]; tizanidine 4 mg oral capsule 2 times per day [Active]; Flomax 0.4 mg Oral capsule 1 cap daily [Active]; pantoprazole 40 mg oral granules delayed release for susp packet daily [Active]; thorazine 150 mg 1.5 tablets nightly for Sleep Disorder [Active]; - PMHx: 16:19 Arthritis; High Cholesterol; Hypertensive disorder; Congestive heart failure; me1 - PSHx: 16:19 cardiac stents; me1 - Immunization history:: Adult Immunizations up to date. - Social history:: Smoking status: Patient denies any tobacco usage or history of. - Family history:: not pertinent. - Hospitalizations: : No recent hospitalization is reported. Screenin:28 [facility] ED Fall Risk Assessment (Adult) Score/Fall Risk Level 0 - 2 = Low Risk. Abuse me1 screen: Denies threats or abuse. Nutritional screening: No deficits noted. Tuberculosis screening: No symptoms or risk factors identified. Assessment: 16:28 General: See triage assessment. . Pain:. me1 17:55 Reassessment: No changes from previously documented assessment. Patient and/or family me1 updated on plan of care and expected duration. Pain level reassessed. 19:30 Reassessment: Patient and/or family updated on plan of care and expected duration. Pain ha1 level reassessed. Patient is alert, oriented x 3, equal unlabored respirations, skin warm/dry/pink. Patient denies pain at this time. Patient states feeling better. Patient states symptoms have improved. Vital Signs: 16:00 BP 138 / 80; Pulse 67; Resp 16; Pulse Ox 97% on R/A; me1 16:08 BP 138 / 80; Pulse 65; Resp 18; Temp 98.4(O); Pulse Ox 99% on R/A; Weight 101.6 kg; me1 Height 5 ft. 11 in. ; Pain 0/10; 17:00 BP 130 / 68; Pulse 59; Resp 16; Pulse Ox 97% ; me1 18:00 BP 141 / 69; Pulse 71; Resp 16; Pulse Ox 97% on R/A; me1 19:30 BP 138 / 84; Pulse 60; Resp 17 S; Pulse Ox 98% on R/A; ha1 16:08 Body Mass Index 31.24 (101.60 kg, 180.34 cm) me1 16:08 Pain Scale: Adult nc1 ED Course: 15:55 Patient arrived in ED. rg4 15:55 Travon Fisher MD is Attending Physician. rn 15:58 Imani Parikh, RN is Primary Nurse. me1 16:19 Triage completed. me1 16:19 Arm band placed on Patient placed in waiting room. me1 16:28 Patient has correct armband on for positive identification. Placed in gown. Bed in low me1 position. Call light in reach. Side rails up X 1. Provided Education on: POC, verbalized understanding. . 16:28 No provider procedures requiring assistance completed. me1 16:41 Basic Metabolic Panel Sent. me1 16:41 CBC with Diff Sent. me1 16:41 LFT's Sent. me1 16:41 NT PRO-BNP Sent. me1 16:41 PT-INR Sent. me1 16:41 Troponin HS Sent. me1 16:42 Inserted saline lock: 20 gauge in right antecubital area, using aseptic technique. me1 16:42 XRAY Chest (1 view) Sent. me1 17:00 Charly Carr MD is Hospitalizing Provider. rn 17:01 XRAY Chest (1 view) In Process Unspecified. EDMS 19:54 Patient admitted, IV remains in place. ha1 Administered Medications: No medications were administered Medication: 16:28 VIS not applicable for this client. me1 Outcome: 17:01 Decision to Hospitalize by Provider. rn 19:53 Admitted to Tele accompanied by tech, via wheelchair, room 414, with chart, Report ha1 called to JACKLYN Raza 19:53 Condition: stable 19:53 Discharge instructions given to patient, Instructed on the need for admit, Demonstrated understanding of instructions. 19:54 Patient left the ED. ha1 Signatures: Dispatcher [employer] EDND Travon Fisher MD MD rn Garcia, Rubi rg4 Raysa Taylor RN RN 1 Imani Parikh, RN RN me1 Corrections: (The following items were deleted from the chart) 18:30 17:00 BP 141 / 69; Pulse 71bpm; Resp 16bpm; Pulse Ox 97% RA; me1 me1
[2022-09-22 17:11] LABS: Albumin 3.2 g/dL (3.4-5.0); Bilirubin Direct 0.2 mg/dL (0-0.2); Bilirubin Indirect, Calculated 0.4 mg/dL (0.2-0.8); Bilirubin Total 0.6 mg/dL (0.2-1.0); Potassium 3.5 mEq/L (3.5-5.1); Protein, Total 6.2 g/dL (6.4-8.2); Troponin High Sensitivity 12.5 pg/mL (<58.9)
--- NOTE | 2022-09-22 17:15 | RAD REPORT ---
EXAM DESCRIPTION: Kari Single View09/22/2022 4:59 pm CLINICAL HISTORY: sob COMPARISON: 2021 FINDINGS: The lungs appear clear of acute infiltrate. The heart is mildly enlarged IMPRESSION: No acute abnormalities displayed
[2022-09-22] MEDS ORDERED: ACETAMINOPHEN 325 MG TABLET PO PRN (17:38)
[2022-09-22] MEDS ORDERED: TRAMADOL HCL 50 MG TAB PO PRN (17:38)
[2022-09-22] MEDS ORDERED: ONDANSETRON 4 MG/2 ML VIAL IV PRN (17:41)
--- NOTE | 2022-09-22 17:49 | P.HP ---
Certification for Inpatient Patient admitted to: Inpatient With expected LOS: >2 Midnights Patient will require the following post-hospital care: None Practitioner: I am a practitioner with admitting privileges, knowledge of patient current condition, hospital course, and medical plan of care. Services: Services provided to patient in accordance with Admission requirements found in Title 42 Section 412.3 of the Code of Federal Regulations Patient History Date of Service: 09/22/22 Reason for admission: SOB and Bilateral LE edema History of Present Illness: Patient is a 77-year-old male with a past medical history significant for prostate cancer, hypertension, hyperlipidemia, CAD with stents, [place], GERD who presents with complaint of shortness of breath and bilateral lower extremity edema. Patient reported that he has been having symptoms for quite some time now. Patient reported associated signs and symptoms of cough and orthopnea. P atient denies any other signs or symptoms. Symptoms are aggravated by exertion and relieved by nothing. Patient reported that he followed up with his core placer who instructed him to come to the ER. Patient decided to present to the hospital as directed by his core placer. Allergies No Known Allergies Allergy (Verified 08/24/19 14:04) Home Medications: Fluticasone Propionate [Flonase Allergy Relief] 2 spray IH DAILY 08/30/18 Trazodone [Desyrel*] 2 tab PO BEDTIME 08/30/18 Aspirin Chewable [Aspirin Chewable*] 81 mg PO DAILY #30 tab.chew 08/31/18 Atorvastatin Calcium [Lipitor] 80 mg PO BEDTIME #30 tab 08/31/18 Clopidogrel Bisulfate [Plavix*] 75 mg PO DAILY #30 tablet 08/31/18 Tamsulosin [Flomax*] 0.4 mg PO BEDTIME cap 08/31/18 Cetirizine HCl [Zyrtec] 10 mg PO DAILY 08/24/19 Ezetimibe [Zetia*] 10 mg PO DAILY 08/24/19 Fexofenadine HCl 180 mg PO DAILY 08/24/19 Pantoprazole Sodium [Protonix] 40 mg PO DAILY 08/24/19 Furosemide [Lasix*] 2 tab PO DAILY 11/10/21 Montelukast [Singulair*] 1 tab PO DAILY 11/10/21 Vit B Complex B-100 1 tab PO DAILY 11/10/21 Metoprolol Succinate [Toprol Xl*] 50 mg PO DAILY #30 tab 11/12/21 - Past Medical/Surgical History Diabetic: No -: prostate cancer -: hypertensive -: hyperlipidemia -: GERD -: Cardiac stents-year [id number] - Family History Family History: Reviewed- Non-Contributory - Social History Smoking Status: Never smoker Alcohol use: Yes CD- Drugs: No Caffeine use: No Place of Residence: Home Review of Systems General: Unremarkable Eyes: Unremarkable ENT: Unremarkable Respiratory: Cough, Shortness of Breath Cardiovascular: Orthopnea Gastrointestinal: Unremarkable Genitourinary: Unremarkable Musculoskeletal: Pedal edema Integumentary: Unremarkable Neurological: Unremarkable Lymphatics: Unremarkable Physical Examination - Physical Exam General: Alert, In no apparent distress, Oriented x3, Cooperative HEENT: Atraumatic, PERRLA, Mucous membr. moist/pink, EOMI, Sclerae nonicteric Neck: Supple, 2+ carotid pulse no bruit, No LAD, Without JVD or thyroid abnormality Respiratory: Diminished Cardiovascular: Regular rate/rhythm, Normal S1 S2, Edema Capillary refill: <2 Seconds Gastrointestinal: Normal bowel sounds, Soft and benign, No tenderness Musculoskeletal: No clubbing, No tenderness Integumentary: No rashes, No breakdown, No erythema Neurological: Normal speech, Normal tone, Normal affect Lymphatics: No axilla or inguinal lymphadenopathy - Studies Laboratory Data (last 24 hrs) 09/22/22 09/22/22 09/22/22 16:40 16:40 16:40 WBC 5.80 Hgb 13.8 Hct 40.6 Plt Count 172 PT 12.1 INR 1.10 Sodium 142 Potassium 3.5 D BUN 13 Creatinine 1.10 Glucose 150 H Total Bilirubin 0.6 AST 27 ALT 34 Alkaline Phosphatase 97 Assessment and Plan - Plan --Acute on chronic diastolic CHF exacerbation. Cardiology consulted. Patient placed on diuresis with Lasix. Daily weight and strict I/O. Echocardiogram pending to assess LV\valvular function and wall motion. We will await further recommendation from core placer. --History of AK\CAD with stents. Continue aspirin, Plavix and statin. --GERD. Continue Protonix. --Hyperlipidemia. Continue statin. --Hypertension. Poorly controlled. Continue home medications and hydralazine as needed. --History of prostate cancer. Status unknown. Continue supportive care. -- BPH. Continue Flomax. --Allergic rhinitis. Continue home medications. --Class I obesity. Likely secondary to excess calories intake. Patient counseled on weight reduction, diet and excise therapy. --DVT prophylaxis with Lovenox subQ. Discharge Plan: Home Plan to discharge in: Greater than 2 days - Advance Directives Does patient have a Living Will: Yes Does patient have a Durable POA for Healthcare: Yes - Code Status/Comfort Care Code Status Assessed: Yes Physician Review: Patient Assessed, Agree with Above Assessment and Plan Critical Care: No
[2022-09-22 17:50] LABS: SARS-CoV-2 Antigen Rapid Res Negative (Negative)
--- NOTE | 2022-09-22 21:49 | P.PN ---
Date of Service: 09/23/22 Subjective: Pt doing well with no new complaints ROS: 10 point ROS as noted above, otherwise negative Physical Exam: GEN: Alert, oriented, NAD HEENT: Normal conjunctiva, sclera anicteric CV: Regular rate & rhythm, no edema Pulm: Nonlabored respiraitons on room air ABD: Soft, nontender, nondistended MSK: No joint tenderness Integumentary: No rashes Neuro: Normal speech, normal affect Problem List: 1. CHF exacerbation PLAN Cardiology consulted echo ordered monitor on telemetry continue lasix Confirm home medications, restart as appropriate VTE: Lovenox Code: Full Dispo: Home
[2022-09-22] MEDS: FUROSEMIDE 20 MG/ 2ML VIAL IV SCH (23:14)
[2022-09-22] MEDS: ENOXAPARIN 40 MG/0.4 ML SQ SCH (23:15)
[2022-09-22] MEDS ORDERED: HYDRALAZINE HCL 20 MG/ML VIAL IV PRN (23:36)
[2022-09-23 04:08] VITALS: BMI 22.0
[2022-09-23 06:20] LABS: Specific Gravity 1.014 (1.005-1.030); Urine Bacteria None Seen /HPF (<20); Urine Bilirubin NEGATIVE (Negative); Urine Blood Trace (Negative); Urine Clarity Clear (Clear); Urine Color Yellow (Yellow); Urine Glucose NEGATIVE (Negative); Urine Protein NEGATIVE (Negative); Urine RBC <5 /HPF (None Seen); Urine Urobilinogen Normal (Normal); Urine pH 6.5 (5.0-7.0)
[2022-09-23 06:23] LABS: Absolute Lymphocytes (CBC) 1.1 K/uL (0.7-4.9); Hematocrit 37.4 % (39.6-49.0); Lymphocytes % 23.1 % (15.3-44.8); MPV 6.7 fL (7.6-11.3); Platelets 162 thou/uL (152-406); RBC Red Blood Cell Count 4.02 M/uL (4.33-5.43)
[2022-09-23 06:37] LABS: Potassium 3.4 mEq/L (3.5-5.1)
[2022-09-23] MEDS: FUROSEMIDE 20 MG/ 2ML VIAL IV SCH ×2 (08:32→16:04)
[2022-09-23] MEDS: ENOXAPARIN 40 MG/0.4 ML SQ SCH (08:32)
[2022-09-23] MEDS: ASPIRIN 81 MG CHEWABLE TABLET PO SCH (08:32)
[2022-09-23] MEDS ORDERED: POTASSIUM CL SA 10 MEQ TAB PO ONE (09:00)
[2022-09-23] MEDS ORDERED: FUROSEMIDE 20 MG/ 2ML VIAL IV SCH (09:00)
[2022-09-24 08:40] VITALS: BP 140/75; TEMP 97.8
[2022-09-24] MEDS: FUROSEMIDE 20 MG/ 2ML VIAL IV SCH (08:51)
[2022-09-24] MEDS: ASPIRIN 81 MG CHEWABLE TABLET PO SCH (08:51)
[2022-09-24] MEDS: ENOXAPARIN 40 MG/0.4 ML SQ SCH (08:52)
[2022-09-24] MEDS ORDERED: POTASSIUM CL SA 10 MEQ TAB PO ONE (09:00)
[2022-09-24 09:41] VITALS: O2SAT 98
--- NOTE | 2022-09-24 14:37 | ECHO ---
HEIGHT: 5 ft 11 in WEIGHT: 158 lb 0.085 oz DATE OF STUDY: 09/24/[address]: Madhuri Mohan 2-DIMENSIONAL: YES M.MODE: YES DOPPLER: YES COLOR FLOW: YES TDS: PORTABLE: YES DEFINITY: BUBBLE STUDY: DIAGNOSIS: CONGESTIVE HEART FAILURE CARDIAC HISTORY: CATHERIZATION: SURGERY: PROSTHETIC VALVE: PACEMAKER: MEASUREMENTS (cm) DIASTOLIC (NORMALS) SYSTOLIC (NORMALS) IVSd 1.1 (0.6-1.2) LA Diam 3.8 (1.9-4.0) LVEF 53% LVIDd 5.1 (3.5-5.7) LVIDs 3.7 (2.0-3.5) %FS 28% LVPWd 1.2 (0.6-1.2) Ao Diam 3.4 (2.0-3.7) 2 DIMENSIONAL ASSESSMENT: RIGHT ATRIUM: NORMAL LEFT ATRIUM: NORMAL RIGHT VENTRICLE: NORMAL LEFT VENTRICLE: NORMAL TRICUSPID VALVE: NORMAL MITRAL VALVE: NORMAL PULMONIC VALVE: NORMAL AORTIC VALVE: MILD AORTIC INSUFFICIENCY PERICARDIAL EFFUSION: NONE AORTIC ROOT: NORMAL LEFT VENTRICULAR WALL MOTION: NORMAL DOPPLER/COLOR FLOW: MILD AORTIC INSUFFICIENCY COMMENTS: 1. NORMAL LEFT VENTRICULAR EJECTION FRACTION 55-60% 2. NORMAL WALL MOTION 3. GRADE I DIASTOLIC DYSFUNCTION 4. MILD AORTIC INSUFFICIENCY TECHNOLOGIST: JOHAN HENDERSON
--- NOTE | 2022-09-24 18:15 | EKG ---
Test Date: 2022-09-22 Test Time: 16:50:11 Skimmer Scoop Operator: MEASUREMENT RESULTS: Intervals: Rate: 60 IA: 180 QRSD: 154 QT: 496 QTc: 496 [place]: P: 40 IA: 180 QRS: -38 T: 60 INTERPRETIVE STATEMENTS: Normal sinus rhythm Left axis deviation Right bundle branch block Inferior infarct, age undetermined Abnormal ECG Compared to ECG 11/10/2021 14:27:38 Left-axis deviation now present Sinus bradycardia no longer present Sinus arrhythmia no longer present Myocardial infarct finding still present Electronically Signed On 09-24-22 18:11:54 CDT by Yan Briseno
== END 2022-09-24 11:47 | disposition home or self-care (01) | DRG 291 ==
LOC: ER 15:53 → ERHOLD 17:37 → 4TH 19:25
PROVIDERS: ADMIT Internal Medicine; ATTEND Hospitalist
DX: I11.0 Hypertensive heart disease with heart failure (principal); I50.33 Acute on chronic diastolic (congestive) heart failure; J30.9 Allergic rhinitis, unspecified; E66.09 Other obesity due to excess calories; N40.0 Benign prostatic hyperplasia without lower urinary tract symptoms; K21.9 Gastro-esophageal reflux disease without esophagitis; E78.00 Pure hypercholesterolemia, unspecified; I25.10 Atherosclerotic heart disease of native coronary artery without angina pectoris; I25.2 Old myocardial infarction; Z95.5 Presence of coronary angioplasty implant and graft; Z68.22 Body mass index [BMI] 22.0-22.9, adult; Z79.82 Long term (current) use of aspirin; Z79.899 Other long term (current) drug therapy
CPT/HCPCS: 36415; 71045; 80048; 80061; 80076; 81001; 83735; 83880; 84100; 84484; 85025; 85610; 87811; 93005; 93306; 99285; J1650; J1940